=== PATIENT | female | born 1945 | race Caucasian/White ===

== ENCOUNTER → 2017-03-04 | Outpatient (CLI) | payer OTHER ==
[2017-03-04 17:42] LABS: BASO % 0.6 %; BASO ABS # 0.04 K/uL (0-0.2); COMPLETE YES; EOS % 2.5 %; IG% 0.1 %; LYMPH % 28.5 %; LYMPH ABS # 2.07 K/uL (1.2-3.4); MEAN CELL VOLUME 96.9 fL (80-100); MEAN CORPUSCULAR HEMOGLOBIN 32.4 pg (25-34); MEAN CORPUSCULAR HGB CONC 33.4 g/dl (32-36); MEAN PLATELET VOLUME 10.3 fL (7.4-10.4); MONO % 8.5 %; NEUT % 59.8 %; PLATELET COUNT 228 K/uL (130-400); RED BLOOD COUNT 4.54 M/uL (4.2-5.4); WHITE BLOOD COUNT 7.26 K/uL (4.8-10.8)
[2017-03-04 18:03] LABS: CALCIUM 9.1 mg/dl (8.5-10.1)
[2017-03-04 18:05] LABS: ALB/GLOB RATIO 1.1 (0.9-2); ALKALINE PHOSPHATASE 60 U/L (45-117); ALT/SGPT 23 U/L (12-78); AST/SGOT 19 U/L (15-37); BLOOD UREA NITROGEN 18 mg/dl (7-18); BUN/CREATININE RATIO 25.7 (10-20); CARBON DIOXIDE 30 mmol/L (21-32); CHLORIDE 105 mmol/L (98-107); GLUCOSE 135 mg/dl (70-99); POTASSIUM 3.8 mmol/L (3.5-5.1); SODIUM 142 mmol/L (136-145)
--- NOTE | 2017-03-14 06:07 | CODING QUERY MEDICAL NECESSITY ---
SUPPORTING DIAGNOSIS NEEDED Dr. Diamond, A supporting diagnosis is required for the test/procedure performed on this patient in order for us to be reimbursed by the patient's insurance. Please provide a supporting diagnosis for the following test/procedure listed below next to the test name along with your signature. *If there is no additional diagnosis for this patient that would support the following test/procedure please document that below next to the test/procedure. Test(s)/Procedure(s) that require a supporting diagnosis: * ([id number]) VITAMIN D ASSAY DIAGNOSIS: * ([id number]) B12 VITAMIN LEVEL DIAGNOSIS: DATE OF SERVICE: 03/04/17 Provider Signature: Date: Thank you Efrain Irwin [facility] Information Management Once completed, please kindly fax back to [phone] For questions please call [phone]
== END | disposition home or self-care (01) ==
LOC: C.LABBFT 12:32
PROVIDERS: ATTEND Internal Medicine
DX: J44.9 Chronic obstructive pulmonary disease, unspecified (principal); R53.83 Other fatigue

== ENCOUNTER → 2017-03-08 | Outpatient (CLI) | payer OTHER ==
--- NOTE | 2017-03-08 10:33 | DIAGNOSTIC IMAGING REPORT ---
CHEST 2 VIEWS ROUTINE CLINICAL HISTORY: J44.9 Chronic obstructive pulmonary disease COMPARISON STUDY: 01/31/2015 FINDINGS: Stable mild/moderate emphysematous change. Slight interstitial prominence considered chronic. No new or interval change. There are no focal infiltrative changes. Mild flattening of the diaphragms bilaterally. IMPRESSION: Stable emphysematous change. No acute process. Electronically signed by: Tino Green M.D. 03/08/2017 10:31 AM Dictated Date/Time: 03/08/2017 10:30 AM
== END | disposition home or self-care (01) ==
LOC: C.RAD1850 09:58
PROVIDERS: ATTEND Internal Medicine
DX: J44.9 Chronic obstructive pulmonary disease, unspecified (principal)

== ENCOUNTER 2019-03-12 21:10 | Inpatient (IN) ==
[2019-03-12] MEDS ORDERED: methylPREDNISolone 125 MG/2 ML VIAL IV STA (22:00)
[2019-03-12] MEDS ORDERED: ALBUT/IPRATROP 3MG/0.5MG NEB 3 ML VIAL NEB STA ×2 (22:00→23:51)
--- NOTE | 2019-03-12 22:05 | Emergency Department Note ---
Entered by Roberto Parmar acting as a scribe for Jayjay Gan DO History of Present Illness General Chief complaint: Shortness of Breath/Dyspnea Stated complaint: SOB Time Seen by Provider: 03/12/19 21:51 Source: patient History of Present Illness Provider complaint: Shortness of breath Onset (ago): hour(s) (Couple days ago) Location: chest Radiation: non-radiation Pain Consistency: + constant Relieved By: + none Exacerbated By: + none Associated symptoms: + cough The patient is a 73 year old female who presents to the Emergency Room with complaints of constant shortness of breath that started a couple of days ago when she developed a cold. The patient states that when the cold began she also developed a constant cough. She mentioned that over these past few days she has not been sleeping well, nor has she been drinking many fluids, which she thinks may be the cause of her symptoms. Prior to arrival the patient has been taking Advil every 8 hours, but her symptoms persist. The patient states that she came in tonight because a friend that was visiting did not like how her breathing sounded. The patient does not wear oxygen at baseline but does have a history of emphysema and COPD from smoking. The patient currently smokes about 7 cigarettes per day. Home Medications Home Medications Medication Instructions Recorded Confirmed Type acetaminophen [Tylenol] 325 mg PO QID PRN 03/12/19 03/12/19 History losartan 50 mg PO DAILY 03/12/19 03/12/19 History Allergies Allergy/AdvReac Type Severity Reaction Status Date / Time erythromycin base Allergy Intermediate HIVES, Verified 02/22/15 20:03 SWELLING Past Med/Surg History Medical History Kidney stones (Resolved) Abdominal pain (Acute) Constipation (Acute) Family History Other No pertinent family history in first degree relatives Social History Preferred Language: Irish Feels Safe at Home: Yes Smoking Status: Current every day smoker Review of Systems See HPI for pertinent positives & negatives. and A total of 10 systems reviewed and were otherwise negative Physical Exam Vital Signs Vital Signs - 24 hr 03/12/19 21:15 03/12/19 21:21 06/13/19 22:21 Temperature 36.8 C Temperature Source Oral Sepsis Recent Fever Within 48 Hours No Sepsis New/Unexplained Change in Mental Status No Sepsis Action Taken by Nursing No Action Required Pulse Rate 100 H Pulse Rate [Apical] Pulse Rate from SpO2 Sensor Pulse Rhythm Regular Pulse Rhythm [Apical] Pulse Strength Normal Pulse Strength [Apical] Respiratory Rate 26 H 20 Respiratory Effort / Characteristics Non-Labored Spontaneous Non-Labored Spontaneous Non-Labored Spontaneous Respiratory Depth Normal Normal Respiratory Pattern Regular Regular Blood Pressure 189/107 H Blood Pressure [Right Arm] Blood Pressure Mean 134 Blood Pressure Mean [Right Arm] Blood Pressure Position Sitting Blood Pressure Position [Right Arm] Pulse Oximetry 87 L 96 98 Oxygen Delivery Method Room Air Nasal Cannula Nasal Cannula Oxygen Flow Rate 2 2 03/12/19 22:23 03/12/19 23:00 03/13/19 00:00 Temperature Temperature Source Sepsis Recent Fever Within 48 Hours Sepsis New/Unexplained Change in Mental Status Sepsis Action Taken by Nursing Pulse Rate 93 H Pulse Rate [Apical] 89 Pulse Rate from SpO2 Sensor 93 H Pulse Rhythm Pulse Rhythm [Apical] Regular Pulse Strength Pulse Strength [Apical] Normal Respiratory Rate 20 24 Respiratory Effort / Characteristics Non-Labored Spontaneous Respiratory Depth Normal Respiratory Pattern Regular Blood Pressure 171/88 H Blood Pressure [Right Arm] 145/76 H Blood Pressure Mean 115 Blood Pressure Mean [Right Arm] 99 Blood Pressure Position Blood Pressure Position [Right Arm] Sitting Pulse Oximetry 97 97 97 Oxygen Delivery Method Nasal Cannula Nasal Cannula Oxygen Flow Rate 2 2 03/13/19 00:30 03/13/19 00:31 03/13/19 01:00 Temperature Temperature Source Sepsis Recent Fever Within 48 Hours Sepsis New/Unexplained Change in Mental Status Sepsis Action Taken by Nursing Pulse Rate 98 H 96 H 98 H Pulse Rate [Apical] 95 H Pulse Rate from SpO2 Sensor 99 H 93 H Pulse Rhythm Pulse Rhythm [Apical] Regular Pulse Strength Pulse Strength [Apical] Respiratory Rate 22 24 24 Respiratory Effort / Characteristics Respiratory Depth Normal Respiratory Pattern Regular Blood Pressure 179/101 H Blood Pressure [Right Arm] 185/93 H Blood Pressure Mean 127 Blood Pressure Mean [Right Arm] 123 Blood Pressure Position Blood Pressure Position [Right Arm] Pulse Oximetry 93 94 96 Oxygen Delivery Method Nasal Cannula Oxygen Flow Rate 2 GENERAL: Patient is awake alert in no acute distress patient is resting comfortably and showing no signs of anxiety EYES: The conjunctivae are clear. The pupils are round and reactive. EARS, NOSE, MOUTH AND THROAT: The nose is without any evidence of any deformity. Mucous membranes are moist tongue is midline NECK: The neck is nontender and supple. RESPIRATORY: Shallow respirations were noted. There are diminished breath sounds throughout with expiratory wheezing in both upper lung bianchi. Mild conversational dyspnea was appreciated. CARDIOVASCULAR: Tachycardic rate with regular rhythm was noted. No definite murmur was noted. GASTROINTESTINAL: The abdomen is soft. Bowel sounds are present in all quadrants. Abdomen is nontender MUSCULOSKELETAL/EXTREMITIES: There is no evidence of gross deformity full range of motion is noted in the hips and shoulders SKIN: There is no obvious evidence of any rash. There are no petechiae, pallor or cyanosis noted. NEUROLOGIC: Patient is awake alert and oriented x3 strength is symmetric patellar reflexes are 2+ bilaterally Course 2154: The patient was evaluated in room B06, and a complete history and physical examination were performed. 0022: I spoke to Dr. Garland [facility] Hospitalist about the patient's case and he is going to accept her for further evaluation. 0031: I updated the patient on results and the treatment plan. She is in agreement. Consultations Consultation #1: I spoke to Dr. Garland [facility] Hospitalist about the patient's case and he is going to accept her for further evaluation. Time: 00:22 Administered Medications Ioversol (Optiray 320 125ml) 125 ml IV ONCE PRN PRN Reason: Interaction Checking Stop: 03/16/19 23:37 Last Admin: 03/12/19 23:39 Dose: 90 ml Documented by: [id number] Discontinued Medications Albuterol (Duoneb) 3 ml NEB NOW STA Stop: 03/12/19 22:01 Last Admin: 03/12/19 22:17 Dose: 3 ml Documented by: [id number] Albuterol (Duoneb) 3 ml NEB NOW STA Stop: 03/12/19 23:52 Last Admin: 03/13/19 00:29 Dose: 3 ml Documented by: [id number] Sodium Chloride (Nss 1000ml) 500 mls @ 999 mls/hr IV .Q31M ONE Stop: 03/12/19 23:44 Last Infusion: 03/13/19 00:45 Dose: 0 mls/hr Documented by: [id number] Admin: 03/12/19 23:55 Dose: 999 mls/hr Documented by: [id number] Levofloxacin (Levaquin) 750 mg PO ONE ONE Stop: 03/13/19 00:14 Last Admin: 03/13/19 00:29 Dose: Not Given Documented by: [id number] Levofloxacin (Levaquin) Confirm Administered Dose 750 mg PO .STK-MED ONE Stop: 03/13/19 00:24 Last Admin: 03/13/19 00:28 Dose: 750 mg Documented by: [id number] Methylprednisolone (Solumedrol) 125 mg IV NOW STA Stop: 03/12/19 22:01 Last Admin: 03/12/19 22:34 Dose: 125 mg Documented by: [id number] Medical Decision Making Differential Diagnosis Differential diagnoses includes but is not limited to pneumonia, bronchitis, C OPD/Asthma exacerbation, pneumothorax, pulmonary embolism, congestive heart failure, acute coronary syndrome, amongst others. Medical Records Attestation: I reviewed the patient's medical records. Home Medications Current Medication List: was personally reviewed by me Laboratory Data Attestation: I reviewed the patient's lab results. Result diagrams: 03/12/19 22:21 03/12/19 22:21 Lab Results 03/12/19 03/12/19 03/12/19 Range/Units 22:08 22:21 22:21 WBC 11.08 H (4.8-10.8) K/uL RBC 4.93 (4.2-5.4) M/uL Hgb 16.1 H (12.0-16.0) g/dL Hct 46.0 (37-47) % MCV 93.3 (80-100) fL MCH 32.7 (25-34) pg MCHC 35.0 (32-36) g/dL RDW Std Deviation 45.7 (36.4-46.3) fL RDW Coeff of Petty 13.3 (11.5-14.5) % Plt Count 209 (130-400) K/uL MPV 9.1 (7.4-10.4) fL Immature Gran % (Auto) 0.3 % Neut % (Auto) 73.5 % Lymph % (Auto) 12.2 % [place] % (Auto) 12.7 % Eos % (Auto) 0.9 % Baso % (Auto) 0.4 % Immature Gran # (Auto) 0.03 H (0.00-0.02) K/uL Neut # (Auto) 8.15 H (1.4-6.5) K/uL Lymph # (Auto) 1.35 (1.2-3.4) K/uL [place] # (Auto) 1.41 H (0.11-0.59) K/uL Eos # (Auto) 0.10 (0-0.5) K/uL Baso # (Auto) 0.04 (0-0.2) K/uL PT 11.1 (9.0-12.0) Seconds INR 1.1 (0.9-1.1) APTT 28.2 (21.0-31.0) Seconds PTT Ratio 1.0 VBG pH (7.36-7.41) VBG pCO2 (38-50) mmHg VBG pO2 mmHg VBG HCO3 mmol/L VBG O2 Saturation % VBG Base Excess mEq/L Barometric Pressure mm/Hg Sodium (136-145) mmol/L Potassium (3.5-5.1) mmol/L Chloride (98-107) mmol/L Carbon Dioxide (21-32) mmol/L Anion Gap (3-11) BUN (7-18) mg/dl Creatinine (0.6-1.2) mg/dl Est Cr Clr Drug Dosing ml/min Est GFR ( Amer) Est GFR (Non-Af Amer) BUN/Creatinine Ratio (10-20) Glucose (70-99) mg/dl Calcium (8.5-10.1) mg/dl Magnesium (1.8-2.4) mg/dl Total Bilirubin (0.2-1) mg/dl AST (15-37) U/L ALT (12-78) U/L Alkaline Phosphatase (45-117) U/L Troponin I (0-0.045) ng/ml Total Protein (6.4-8.2) gm/dl Albumin (3.4-5.0) gm/dl Globulin (2.5-4.0) gm/dl Albumin/Globulin Ratio (0.9-2) Urine Color Yellow Urine Appearance Clear (Clear) Urine pH 5.5 (4.5-7.5) Ur Specific [place] 1.014 (1.000-1.030) Urine Protein Negative (Negative) Urine Glucose (UA) Negative (Negative) Urine Ketones Negative (Negative) Urine Blood Negative (Negative) Urine Nitrite Negative (Negative) Urine Bilirubin Negative (Negative) Urine Urobilinogen Negative (Negative) Ur Leukocyte Esterase Negative (Negative) 03/12/19 03/12/19 Range/Units 22:21 22:21 WBC (4.8-10.8) K/uL RBC (4.2-5.4) M/uL Hgb (12.0-16.0) g/dL Hct (37-47) % MCV (80-100) fL MCH (25-34) pg MCHC (32-36) g/dL RDW Std Deviation (36.4-46.3) fL RDW Coeff of Petty (11.5-14.5) % Plt Count (130-400) K/uL MPV (7.4-10.4) fL Immature Gran % (Auto) % Neut % (Auto) % Lymph % (Auto) % [place] % (Auto) % Eos % (Auto) % Baso % (Auto) % Immature Gran # (Auto) (0.00-0.02) K/uL Neut # (Auto) (1.4-6.5) K/uL Lymph # (Auto) (1.2-3.4) K/uL [place] # (Auto) (0.11-0.59) K/uL Eos # (Auto) (0-0.5) K/uL Baso # (Auto) (0-0.2) K/uL PT (9.0-12.0) Seconds INR (0.9-1.1) APTT (21.0-31.0) Seconds PTT Ratio VBG pH 7.37 (7.36-7.41) VBG pCO2 51 H (38-50) mmHg VBG pO2 40 mmHg VBG HCO3 29 mmol/L VBG O2 Saturation 74.8 % VBG Base Excess 2.4 mEq/L Barometric Pressure 726.3 mm/Hg Sodium 137 (136-145) mmol/L Potassium 4.0 (3.5-5.1) mmol/L Chloride 101 (98-107) mmol/L Carbon Dioxide 30 (21-32) mmol/L Anion Gap 6.0 (3-11) BUN 19 H (7-18) mg/dl Creatinine 0.70 (0.6-1.2) mg/dl Est Cr Clr Drug Dosing 52.9 ml/min Est GFR ( Amer) 99.6 Est GFR (Non-Af Amer) 86.0 BUN/Creatinine Ratio 27.0 H (10-20) Glucose 96 (70-99) mg/dl Calcium 9.6 (8.5-10.1) mg/dl Magnesium 2.2 (1.8-2.4) mg/dl Total Bilirubin 0.2 (0.2-1) mg/dl AST 20 (15-37) U/L ALT 24 (12-78) U/L Alkaline Phosphatase 78 (45-117) U/L Troponin I < 0.015 (0-0.045) ng/ml Total Protein 7.9 (6.4-8.2) gm/dl Albumin 3.9 (3.4-5.0) gm/dl Globulin 4.0 (2.5-4.0) gm/dl Albumin/Globulin Ratio 1.0 (0.9-2) Urine Color Urine Appearance (Clear) Urine pH (4.5-7.5) Ur Specific [place] (1.000-1.030) Urine Protein (Negative) Urine Glucose (UA) (Negative) Urine Ketones (Negative) Urine Blood (Negative) Urine Nitrite (Negative) Urine Bilirubin (Negative) Urine Urobilinogen (Negative) Ur Leukocyte Esterase (Negative) Imaging Data Radiologist's Impression: Radiology results as stated below per my review and the radiologist's interpretation: CTA CHEST: Comparison is made to CT chest on 06/09/2008. No pulmonary embolus identified. Atherosclerotic changes of the aorta. No aortic aneurysm or dissection. Bronchial wall thickening is concerning for bronchitis. Mucus impaction in the bronchi in the right middle lobe and right lower lobe. Reticulonodular densities in the right middle lobe and right lower lobe are concerning for infectious/inflammatory process. Emphysematous changes. Mild reflux of contrast into the hepatic veins suggests elevated right heart pressures. Prominence of the esophageal wall could represent esophagitis. Small hypodense nodule in the left thyroid lobe could be further evaluated with nonemergent dedicated ultrasound if clinically indicated. Nonspecific mildly prominent mediastinal and hilar lymph nodes. Radiologist: Daryl Hartman M.D. Study ready at 23:47 and initial results transmitted at 00:02 XR chest 1V portable CLINICAL HISTORY: 73 years-old Female presenting with Dyspnea. TECHNIQUE: Portable upright AP view of the chest was obtained. COMPARISON: Chest x-ray from 02/28/2018. FINDINGS: Atherosclerosis of the aortic arch. Cardiac silhouette normal in size. Lungs are hyperinflated. No focal opacity. No pleural effusion or pneumothorax. Osseous structures normal. Upper abdomen normal. IMPRESSION: 1. Findings suggest emphysema. No focal infiltrate to suggest pneumonia. Electronically signed by: Gabriel Armstrong M.D. 03/12/2019 10:49 PM ECG Data Attestation: I personally reviewed and interpreted this ECG as follows: Indication: SOB/dyspnea Rate (beats per minute): 98 Rhythm: normal sinus Findings: + Q waves (Anterior); no nonspecific-ST abn, no PAC and no PVC Comparison ECG Date: no prior available Blood Pressure Blood Pressure Findings: Elevated blood pressure Blood Pressure Disposition: further management by hospitalist MDM Narrative The patient is a 73-year-old female who presented to the emergency department for an evaluation of shortness of breath. The patient does have a history of tobacco use and appears to have COPD. The patient was treated with IV fluids as well as bronchodilator therapy. She was also given IV steroids. She was placed on supplemental oxygen for hypoxia. On subsequent reevaluation she was feeling much better. I discussed the patient's laboratory and radiographic studies with her. She continued to have hypoxia and significant shortness of breath with any exertion. For this reason I discussed her case with the on-call [facility] hospitalist. They have agreed to evaluate the patient in the emergency department for further management and disposition. A CT the chest was obtained given the lack of findings on chest x-ray. This does not appear to be consistent with a PE but does appear to be consistent with some infectious changes in the right middle and right lower lobes. The patient was started on Levaquin. Impression & Plan COPD (chronic obstructive pulmonary disease), Hypoxia, Bronchitis Discharge Plan Visit Data Chief Complaint: Shortness of Breath/Dyspnea Stated Complaint: SOB ED Provider: Jayjay Gan Discharge Problem: COPD (chronic obstructive pulmonary disease), Hypoxia, Bronchitis Patient Disposition: Being Evaluated by Hospitalist Forms Stand Alone Forms: My [facility] Prescriptions Prescriptions: No Action losartan 50 mg tablet 50 mg PO DAILY RF: 0 acetaminophen [Tylenol] 325 mg Capsule 325 mg PO QID PRN (Reason: Pain) RF: 0 Referrals Referrals: Salvador Diamond III, MD [Primary Care Provider] - Discharge Problem: COPD (chronic obstructive pulmonary disease) Qualifiers: COPD type: emphysema Emphysema type: unspecified Qualified Code(s): J43.9 - Emphysema, unspecified The scribe's documentation has been prepared under my direction and personally reviewed by me in its entirety. I confirm that the note above accurately reflects all work, treatment, procedures, and medical decision making performed by me.
[2019-03-12 22:28] LABS: Appearance Urine Clear (Clear); Bilirubin Urine Negative (Negative); Blood Urine Negative (Negative); Color Urine Yellow; Glucose Urine UA Negative (Negative); Ketones Urine Negative (Negative); Leukocyte Esterase Urine Negative (Negative); Nitrite Urine Negative (Negative); Protein Urine Negative (Negative); Specific Gravity Urine 1.014 (1.000-1.030); Urobilinogen Urine Negative (Negative); pH Urine 5.5 (4.5-7.5)
[2019-03-12 22:31] LABS: Base Excess VBG 2.4 mEq/L; Oxygen Saturation VBG 74.8 %; pH VBG 7.37 (7.36-7.41)
[2019-03-12 22:32] LABS: Basophils # (auto) 0.04 K/uL (0-0.2); Basophils % (auto) 0.4 %; Eosinophils % (auto) 0.9 %; Hemoglobin 16.1 g/dL (12.0-16.0); Immature Granulocytes # (auto) 0.03 K/uL (0.00-0.02); Immature Granulocytes % (auto) 0.3 %; Lymphocytes # (auto) 1.35 K/uL (1.2-3.4); Lymphocytes % (auto) 12.2 %; Mean Corpuscular Volume 93.3 fL (80-100); Mean Platelet Volume 9.1 fL (7.4-10.4); Monocytes # (auto) 1.41 K/uL (0.11-0.59); Monocytes % (auto) 12.7 %; Neutrophils # (auto) 8.15 K/uL (1.4-6.5); Neutrophils % (auto) 73.5 %; Platelet Count 209 K/uL (130-400); RDW Coefficient of Variation 13.3 % (11.5-14.5); RDW Standard Deviation 45.7 fL (36.4-46.3); Red Blood Count 4.93 M/uL (4.2-5.4); White Blood Count 11.08 K/uL (4.8-10.8)
[2019-03-12 22:43] LABS: INR 1.1 (0.9-1.1); Partial Thromboplastin Time 28.2 Seconds (21.0-31.0); Prothrombin Time 11.1 Seconds (9.0-12.0)
[2019-03-12 22:48] LABS: Alanine Aminotransferase 24 U/L (12-78); Albumin Level 3.9 gm/dl (3.4-5.0); Aspartate Aminotransferase 20 U/L (15-37); Blood Urea Nitrogen 19 mg/dl (7-18); Calcium 9.6 mg/dl (8.5-10.1); Carbon Dioxide 30 mmol/L (21-32); Chloride 101 mmol/L (98-107); Creatinine Clr Calc Pharmacy 52.9 ml/min; Est GFR (African American) 99.6; Glucose 96 mg/dl (70-99); Magnesium 2.2 mg/dl (1.8-2.4); Sodium 137 mmol/L (136-145)
--- NOTE | 2019-03-12 22:51 | XRay Report ---
XR chest 1V portable CLINICAL HISTORY: 73 years-old Female presenting with Dyspnea. TECHNIQUE: Portable upright AP view of the chest was obtained. COMPARISON: Chest x-ray from 02/28/2018. FINDINGS: Atherosclerosis of the aortic arch. Cardiac silhouette normal in size. Lungs are hyperinflated. No fo antonino opacity. No pleural effusion or pneumothorax. Osseous structures normal. Upper abdomen normal. IMPRESSION: 1. Findings suggest emphysema. No focal infiltrate to suggest pneumonia. Electronically signed by: Gabriel Armstrong M.D. 03/12/2019 10:49 PM
[2019-03-12 22:53] LABS: Alkaline Phosphatase 78 U/L (45-117); Bilirubin,Total 0.2 mg/dl (0.2-1); Total Protein 7.9 gm/dl (6.4-8.2); Troponin I < 0.015 ng/ml (0-0.045)
[2019-03-12] MEDS ORDERED: SODIUM CHLORIDE 0.9% 1000ML 500 ML IV ONE (23:14)
[2019-03-12] MEDS ORDERED: OPTIRAY 320 125ml IV PRN (23:38)
[2019-03-13] MEDS ORDERED: levoFLOXacin 750 MG TAB PO ONE (00:13)
[2019-03-13] MEDS ORDERED: levoFLOXacin 250 MG TABLET PO ONE (00:23)
[2019-03-13] MEDS ORDERED: ACETAMINOPHEN 325 MG TAB PO PRN (02:56)
[2019-03-13] MEDS ORDERED: VANCOMYCIN CONSULT ACTIVE PRN (02:56)
[2019-03-13] MEDS ORDERED: NON-FORMULARY MEDICATION (Acetaminophen [Tylenol] 650 MG) PO PRN (02:56)
[2019-03-13] MEDS ORDERED: ALUMINUM/MAGNESIUM SUSP 30 ML UDC PO PRN (02:56)
[2019-03-13] MEDS ORDERED: ONDANSETRON INJ 2 MG/ML 2 ML VIAL IV PRN (02:56)
[2019-03-13] MEDS ORDERED: PIPERACILL/TAZOBAC CONSULT ACTIVE PRN (02:56)
[2019-03-13] MEDS ORDERED: MAGNESIUM HYDROXIDE SUSP 30 ML UDC PO PRN (02:56)
[2019-03-13] MEDS ORDERED: POLYETHYLENE (MIRALAX) 17 GM PACK PO PRN (02:56)
[2019-03-13] MEDS ORDERED: PIPERACILLIN/TAZOBACTAM 3.375 GM in DEXTROSE 5% 100 ML IV SCH ×2 (03:30→08:00)
[2019-03-13] MEDS ORDERED: VANCOMYCIN HCL 1,000 MG in SODIUM CHLORIDE 0.9% 250 ML IV SCH (03:30)
--- NOTE | 2019-03-13 06:28 | History & Physical Report ---
Date of Service March 13, 2019 Assessment & Plan (1) COPD exacerbation: COPD exacerbation/right middle and right lower lobe pneumonia/mucous plugging involving right middle and lower lobes/hypoxia- Admit to monitored bed. Vancomycin IV, Zosyn IV per pharmacokinetic monitoring. Pulmicort Respules 0.5 mg inhaled twice daily. Duonebs every 4 hours while awake and every 2 hours when necessary. Guaifenesin extended release 600 mg p.o. twice daily. Sputum Gram stain and culture. Nasal cannula O2, titrate to keep pulse ox 92 to 94% The patient does not have a satisfactory response, she may need to be seen by pulmonology and have bronchoscopy done to clear mucus plugging. Present on Admission?: Yes (2) Pneumonia involving right lung: See above Present on Admission?: Yes (3) Mucus plugging of bronchi: See above Present on Admission?: Yes (4) Left thyroid nodule: Noted on CT. Order a TSH and free T4. Order thyroid ultrasound. Present on Admission?: Yes (5) Esophagitis: Esophageal wall thickening noted on CT, suggestive of esophagitis. With tobacco use history, may need to consider EGD to assess for possible esophageal cancer. Start pantoprazole 40 mg p.o. every morning Present on Admission?: Yes (6) Hypoxia: See above Present on Admission?: Yes (7) Hypertension: Hold losartan Present on Admission?: Yes (8) Tobacco use disorder: Tobacco cessation counseling. NicoDerm 14 mg patch Present on Admission?: Yes History of Present Illness Chief Complaint: The patient presents to the emergency department with complaint of worsening shortness of breath over the past few days. Her is presently in the hospital, and when a friend went to check on her, she was found to be short of breath and was brought to the emergency department for assessment. Primary Care Provider: Salvador Diamond MD The patient is a 73-year-old female with a past medical history including severe COPD, tobacco use disorder, kidney stones and hypertension, who was found by a friend in her home to be short of breath, sounding congested and having a productive cough. She was brought to the emergency department to have these symptoms assessed. Allergies Allergy/AdvReac Type Severity Reaction Status Date / Time erythromycin base Allergy Intermediate HIVES, Verified 02/22/15 20:03 SWELLING Home Medications Home Medications Medication Instructions Recorded Confirmed Type acetaminophen [Tylenol] 325 mg PO QID PRN 06/13/19 06/13/19 History losartan 50 mg PO DAILY 03/12/19 03/12/19 History Past Med/Surg History Medical History Kidney stones (Resolved) Abdominal pain (Acute) Constipation (Acute) Family History Other No pertinent family history in first degree relatives Social History Preferred Language: Guyanese Communication Ability: Effective Telex Operator Required: No Beliefs That Will Affect Care: None Current Living Situation: Spouse Other Information That Helps Us Care for You: No Feels Safe at Home: Yes Safety Concerns: Feels Safe At This Time Smoking Status: Current every day smoker Cigarettes Per Day: 6 Do You Dip or Chew Tobacco: No Tobacco Cessation Education Requested by Patient: No Hx Alcohol Use: No Hx Substance Use: No Review of Systems Review of Systems: The patient denies chest pain, lower extremity swelling, sore throat, fevers, chills, sweats, nausea, vomiting, diarrhea , constipation, abdominal pain, pelvic pain, blood in urine or stool, dysuria, urinary frequency or urgency, lightheadedness, dizziness, headache, memory loss, loss of consciousness, rash, abnormal bruising or bleeding, imbalance, focal weakness, numbness or tingling in arms or legs, generalized arthralgias or myalgias, back or neck pain, or night sweats. The review of systems is otherwise negative other than for that already noted above, and at least 10 systems have been reviewed. Physical Exam Physical Exam: The patient is awake, alert and oriented 3, normocephalic and atraumatic, lying in bed and in no acute distress. HEENT--PERRL, EOMI, mucous membranes and oropharynx dry. Neck--supple. No JVD. No bruits. Thyroid normal, trachea midline, no adenopathy. Heart--normal S1 and S2. No murmurs, rubs or gallops. Lungs--coarse breath sounds, right side greater than left, with wheezes scattered throughout. Abdomen--normal bowel sounds and soft. Nontender. Nondistended. Extremities--no cyanosis or clubbing. No edema. There are good distal pulses b/l. Dermatologic--normal skin turgor, normal color, no abnormal lymph nodes, no rash. Neurologic--cranial nerves II through XII grossly intact. Rheumatologic--normal range of motion. Psychiatric--normal affect. Results & Data Vital Signs (Past 12 Hours) Vital Signs Temp Pulse Pulse Resp BP BP BP 03/13/19 04:05 94 H 03/13/19 04:01 98.6 F 92 H 22 121/72 03/13/19 02:45 98.2 F 97 H 20 137/79 03/13/19 02:28 93 H 22 177/97 H 03/13/19 01:00 98 H 95 H 24 185/93 H 03/13/19 00:31 96 H 24 03/13/19 00:30 98 H 22 179/101 H 03/13/19 00:00 93 H 24 171/88 H 03/12/19 23:00 89 20 145/76 H 03/12/19 22:23 03/12/19 22:21 20 03/12/19 21:21 03/12/19 21:15 98.2 F 100 H 26 H 189/107 H Pulse Ox 03/13/19 04:05 03/13/19 04:01 96 03/13/19 02:45 96 03/13/19 02:28 98 03/13/19 01:00 96 03/13/19 00:31 94 03/13/19 00:30 93 03/13/19 00:00 97 03/12/19 23:00 97 03/12/19 22:23 97 03/12/19 22:21 98 03/12/19 21:21 96 03/12/19 21:15 87 L Laboratory Results Laboratory Results WBC 11.08 K/uL (4.8-10.8) H 03/12/19 22:21 RBC 4.93 M/uL (4.2-5.4) 03/12/19 22:21 Hgb 16.1 g/dL (12.0-16.0) H 03/12/19 22:21 Hct 46.0 % (37-47) 03/12/19 22:21 MCV 93.3 fL (80-100) 03/12/19 22:21 MCH 32.7 pg (25-34) 03/12/19 22:21 MCHC 35.0 g/dL (32-36) 03/12/19 22:21 RDW Std Deviation 45.7 fL (36.4-46.3) 03/12/19 22:21 RDW Coeff of Petty 13.3 % (11.5-14.5) 03/12/19 22:21 Plt Count 209 K/uL (130-400) 03/12/19 22:21 MPV 9.1 fL (7.4-10.4) 03/12/19 22:21 Immature Gran % (Auto) 0.3 % 03/12/19 22:21 Neut % (Auto) 73.5 % 03/12/19 22:21 Lymph % (Auto) 12.2 % 03/12/19 22:21 Crenshaw % (Auto) 12.7 % 03/12/19 22:21 Eos % (Auto) 0.9 % 03/12/19 22:21 Baso % (Auto) 0.4 % 03/12/19 22:21 Immature Gran # (Auto) 0.03 K/uL (0.00-0.02) H 03/12/19 22:21 Neut # (Auto) 8.15 K/uL (1.4-6.5) H 03/12/19 22:21 Lymph # (Auto) 1.35 K/uL (1.2-3.4) 03/12/19 22:21 Crenshaw # (Auto) 1.41 K/uL (0.11-0.59) H 03/12/19 22:21 Eos # (Auto) 0.10 K/uL (0-0.5) 03/12/19 22:21 Baso # (Auto) 0.04 K/uL (0-0.2) 03/12/19 22:21 PT 11.1 Seconds (9.0-12.0) 03/12/19 22:21 INR 1.1 (0.9-1.1) 03/12/19 22: APTT 28.2 Seconds (21.0-31.0) 03/12/19: PTT Ratio 1.0 03/12/19 22:21 VBG pH 7.37 (7.36-7.41) 03/12/19 22: VBG pCO2 51 mmHg (38-50) H 03/12/19 22:21 VBG pO2 40 mmHg 03/12/19 22:21 VBG HCO3 29 mmol/L 03/12/19 22:21 VBG O2 Saturation 74.8 % 03/12/19 22:21 VBG Base Excess 2.4 mEq/L 03/12/19 22:21 Barometric Pressure 726.3 mm/Hg 03/12/19 22:21 Sodium 137 mmol/L (136-145) 03/12/19 22:21 Potassium 4.0 mmol/L (3.5-5.1) 03/12/19 22:21 Chloride 101 mmol/L (98-107) 03/12/19 22:21 Carbon Dioxide 30 mmol/L (21-32) 03/12/19 22:21 Anion Gap 6.0 (3-11) 03/12/19 22:21 BUN 19 mg/dl (7-18) H 03/12/19 22:21 Creatinine 0.70 mg/dl (0.6-1.2) 03/12/19 22:21 Est Cr Clr Drug Dosing 52.9 ml/min 03/12/19 22:21 Est GFR ( Amer) 99.6 03/12/19 22:21 Est GFR (Non-Af Amer) 86.0 03/12/19 22:21 BUN/Creatinine Ratio 27.0 (10-20) H 03/12/19 22:21 Glucose 96 mg/dl (70-99) 03/12/19 22:21 Calcium 9.6 mg/dl (8.5-10.1) 03/12/19 22:21 Magnesium 2.2 mg/dl (1.8-2.4) 03/12/19 22:21 Total Bilirubin 0.2 mg/dl (0.2-1) 03/12/19 22:21 AST 20 U/L (15-37) 03/12/19 22:21 ALT 24 U/L (12-78) 03/12/19 22:21 Alkaline Phosphatase 78 U/L (45-117) 03/12/19 22:21 Troponin I < 0.015 ng/ml (0-0.045) 03/12/19 22:21 Total Protein 7.9 gm/dl (6.4-8.2) 03/12/19 22:21 Albumin 3.9 gm/dl (3.4-5.0) 03/12/19 22:21 Globulin 4.0 gm/dl (2.5-4.0) 03/12/19 22:21 Albumin/Globulin Ratio 1.0 (0.9-2) 03/12/19 22:21 Urine Color Yellow 03/12/19 22:08 Urine Appearance Clear (Clear) 03/12/19 22:08 Urine pH 5.5 (4.5-7.5) 03/12/19 22:08 Ur Specific [place] 1.014 (1.000-1.030) 03/12/19 22:08 Urine Protein Negative (Negative) 03/12/19 22:08 Urine Glucose (UA) Negative (Negative) 03/12/19 22:08 Urine Ketones Negative (Negative) 03/12/19 22:08 Urine Blood Negative (Negative) 03/12/19 22:08 Urine Nitrite Negative (Negative) 03/12/19 22:08 Urine Bilirubin Negative (Negative) 03/12/19 22:08 Urine Urobilinogen Negative (Negative) 03/12/19 22:08 Ur Leukocyte Esterase Negative (Negative) 03/12/19 22:08 Hepatitis C Ab Screen Neg (Neg) 03/12/19 22:23 Diagnostic Findings [place], [place] [phone] XRay Report Patient: Kary STINSON Date: 03/12/19 MR#: [id number]: 4 [facility] Acct ID:[id number]: Date: [address] [place] [address] Zip: [place] [address] Age: 73Location: ED Sex: F Room/Bed: Att Phy: Diagnosis: SOB Ava Phy: Salvador Diamond, III, MDService Date: 03/12/19 Fam Phy: Interpreting Phy: Gabriel Armstrong MD Admit Phy: Ordering Phy: Jayjay Gan DO cc: ~ XR chest 1V portable CLINICAL HISTORY: 73 years-old Female presenting with Dyspnea. TECHNIQUE: Portable upright AP view of the chest was obtained. COMPARISON: Chest x-ray from 02/28/2018. FINDINGS: Atherosclerosis of the aortic arch. Cardiac silhouette normal in size. Lungs are hyperinflated. No focal opacity. No pleural effusion or pneumothorax. Osseous structures normal. Upper abdomen normal. IMPRESSION: 1. Findings suggest emphysema. No focal infiltrate to suggest pneumonia. Electronically signed by: Gabriel Armstrong M.D. 03/12/2019 10:49 PM Dictated: 03/12/192248 Transcribed: 03/12/192248 year still here Code Status & VTE Plan Code Status Full code VTE Prophylaxis Plan VTE Prophylaxis will be ordered: Yes PG Care Time/CCT Total # of Minutes Spent Total Time Spent with Patient: Total time spent is greater than 50% in coordination of care (as documented) at patient's floor/unit and/or counseling patient:
--- NOTE | 2019-03-13 06:57 | CT Scan Report ---
CT angio chest PE protocol CT DOSE: 250.54 mGy.cm HISTORY: 73 years-old Female with PE. Acute cough with shortness of breath TECHNIQUE: Multiple CTA images of the chest were obtained after the intravenous administration of 90 ml Optiray 320. Coronal and sagittal MIPS were obtained from the axial data set and were submitted f or review. All measurements were obtained according to NASCET criteria. A dose lowering technique wa s utilized adhering to the principles of ALARA. COMPARISON: Chest CT 06/09/2008 FINDINGS: CTA: Heart is normal in size without pericardial effusion. Coronary arterial calcifications are noted. No thoracic aortic aneurysm or dissection. Severe calcified plaque of the thoracic aorta with patency of the imaged great vessels. Reflux of contrast into the IVC and hepatic veins. Pulmonary arterial tree is opacified to the level of the distal segmental branches and demonstrates no focal filling defects to suggest pulmonary thromboembolic disease. CT CHEST: Subcentimeter hypodense left thyroid nodule. Prominent right hilar lymph nodes are seen measuring up to 7 mm, likely benign. No adenopathy by CT size criteria. No pneumothorax or pleural effusion. Biapi antonino pleural-parenchymal scarring with mild to moderate upper lung zone predominant centrilobular emph ysema. Moderate bilateral bronchial wall thickening with multifocal mucus plugging. Bibasilar predomi nant tree-in-bud nodules are seen within multiple segments and a multilobar distribution, most pronou nced within the right middle lobe. No lobar airspace consolidation. There is wall thickening noted throughout the entirety of the esophagus, nonspecific. Soft tissues ap pear to be unremarkable. The bones appear to be intact. Degenerative changes of the shoulders and spi ne. IMPRESSION: 1. No acute aortic pathology or evidence of pulmonary thromboembolic disease. 2. Emphysema with bronchitis. Multifocal bilateral mucus plugging is noted in addition to multisegmen mejia multilobar distribution of bronchiolitis, most pronounced within the right lung base. 3. Mildly prominent right hilar lymph nodes, likely reactive. 4. Mild diffuse esophageal wall thickening. Correlate clinically to exclude esophagitis. The above report was generated using voice recognition software. It may contain grammatical, syntax o r spelling errors. Electronically signed by: Maurice Palafox M.D. 03/13/2019 6:56 AM
[2019-03-13] MEDS: PANTOprazole 40 MG TAB PO SCH (08:10)
--- NOTE | 2019-03-13 08:10 | Pharmacy Report ---
Pharmacy Abx Initial Consult - Date of Service March 13, 2019 - Pharmacy Dosing Scope Date of Consult: 03/13/19 Consultation requested by: Dr. Garland Pharmacy is consulted to initiate Vanco + Zosyn IV dosing therapy, order appropriate labs and adjust drug dose/frequency. - Subjective The patient is a 73 year old F admitted on 03/13/19 01:48. - Objective Height: 5 ft 4 in Weight: 46.8 kg Vital Signs (Past 12hrs): Vital Signs Temp Pulse Pulse Resp BP BP BP 03/13/19 04:05 94 H 03/13/19 04:01 37 C 92 H 22 121/72 03/13/19 02:45 36.8 C 97 H 20 137/79 03/13/19 02:28 93 H 22 177/97 H 03/13/19 01:00 98 H 95 H 24 185/93 H 03/13/19 00:31 96 H 24 03/13/19 00:30 98 H 22 179/101 H 03/13/19 00:00 93 H 24 171/88 H 03/12/19 23:00 89 20 145/76 H 03/12/19 22:23 03/12/19 22:21 20 03/12/19 21:21 03/12/19 21:15 36.8 C 100 H 26 H 189/107 H Pulse Ox 03/13/19 04:05 03/13/19 04:01 96 03/13/19 02:45 96 03/13/19 02:28 98 03/13/19 01:00 96 03/13/19 00:31 94 03/13/19 00:30 93 03/13/19 00:00 97 03/12/19 23:00 97 03/12/19 22:23 97 03/12/19 22:21 98 03/12/19 21:21 96 03/12/19 21:15 87 L Lab Results (24hrs): Laboratory Tests (24 Hours) 03/12/19 03/12/19 22:21 22:21 WBC 11.08 H Neut # (Auto) 8.15 H Creatinine 0.70 Est Cr Clr Drug Dosing 52.9 - Risk Factors for Resistance * None - Assessment & Plan Assessment 73 year old F ordered Vanco/Zosyn for COPD Exacerbation CXR & CT negative for PNA Pt with no risk factors for MDRO - may consider deescalating antibiotics to traditional CAP tx (ceftriaxone/azithromycin vs levofloxacin) Plan Vancomycin IV * Estimated PK Parameters: Vd 0.7 L/kg, Shola 0.048 hr-1, t1/2 14.4 hr * Loading dose: 1,000 mg (21 mg/kg) * Maintenance dose: 750 mg IV (15 mg/kg) every 14 hours * Goal trough level for pulmonary : 15 to 20 mcg/mL * Trough level ordered for 03/15/19 @ 1130 (prior to 4th maintenance dose) Piperacillin/tazobactam * 3.375 g bolus administered over 30 minutes, then 3.375 g IV extended infusion every 8 hours for CrCl greater than 20 mL/min Pharmacy will continue to follow and will adjust dose/frequency as necessary. Thank you.
[2019-03-13] MEDS: guaiFENesin 600 MG TABCR PO SCH ×2 (08:11→20:48)
[2019-03-13] MEDS: LOSARTAN POTASSIUM 50 MG TAB PO SCH (08:11)
[2019-03-13] MEDS: HEPARIN SOD 5,000 UNIT/0.5 ML VIAL SQ SCH ×2 (08:17→20:49)
[2019-03-13] MEDS: NICOTINE 14 MG/24 HR PATCH TD SCH (08:18)
--- NOTE | 2019-03-13 11:05 | Ultrasound Report ---
US thyroid CLINICAL HISTORY: 73 years-old Female with Left thyroid lobe nodule seen on CT. Left thyroid nodule COMPARISON: CTA of the chest 03/12/2019 TECHNIQUE: Multiple real time sonographic images of the thyroid were obtained accessing regalado scale ap pearance and color doppler flow. FINDINGS: MEASUREMENTS: Right lobe: 4.2 x 1.2 x 1.2 cm Left lobe: 4.4 x 1.0 x 1.2 cm Isthmus: 0.3 cm PARENCHYMA: The thyroid parenchymal echotexture is homogeneous. NODULES: The previously questioned subcentimeter hypodense left thyroid nodule may correlate with a 4 mm hypoechoic focus of the mid left thyroid. No suspicious nodules identified. No right thyroid nodu le. IMPRESSION: 1. No suspicious thyroid nodules identified. 2. Equivocal 4 mm hypoechoic solid nodule of the mid left thyroid. The above report was generated using voice recognition software. It may contain grammatical, syntax o r spelling errors. Electronically signed by: Maurice Palafox M.D. 03/13/2019 11:04 AM
[2019-03-13] MEDS: ALBUT/IPRATROP 3MG/0.5MG NEB 3 ML VIAL NEB SCH ×4 (11:10→19:32)
[2019-03-13] MEDS: BUDESONIDE 0.5 MG/2 ML VIAL (PULMICORT) NEB SCH ×2 (11:10→19:32)
[2019-03-13] MEDS: cefTRIAXone SODIUM 1,000 MG in DEXTROSE 5% 50 ML IV SCH (12:11)
[2019-03-13] MEDS: predniSONE 20 MG TAB PO SCH (12:11)
--- NOTE | 2019-03-13 13:55 | Family Medicine Progress Note ---
Date of Service March 13, 2019 Assessment & Plan (1) COPD exacerbation: 73 y/o F with PMH HTN, Tobacco Abuse, COPD that is not O2 dependent presents with COPD exacerbation and PNA found on imaging. COPD exacerbation/R middle and RLL PNA -downgrade off tele today -D/C Vanc/Zosyn. Start IV Rocephin. Azithromycin not started given allergy. -Pulmicort Respules 0.5 mg inhaled BID -Duonebs q4h while awake and q2h prn -Guaifenesin extended release 600 mg p.o. BID -PO Prednisone 40 mg -Sputum Gram stain and culture pending -Nasal cannula O2, titrate to keep pulse ox 92 to 94%. On RA presently. Will likely go home on O2. Normally -consider pulm consult for possible bronch to clear mucus plugging if no improvement -PT/OT Left thyroid nodule -CT: Subcentimeter hypodense left thyroid nodule -TSH WNL -Thyroid ultrasound: No suspicious thyroid nodules identified Esophagitis -CT: Mild diffuse esophageal wall thickening, suggestive of esophagitis -With tobacco use history, can consider EGD to assess for possible esophageal cancer on d/c -Pantoprazole 40 mg p.o. every morning Hypertension -Cont Losartan Tobacco use disorder -NicoDerm 14 mg patch FEN/GI: HH Diet DVT Prophylaxis: Heparin SQ Full Code Dispo: Med Surg Supervising Physician Co-Signing Physician Notes I personally examined the patient and verified all tran points of history and exam, discussed case, and agree with decision making with Dr Garcia. Feeling better. Breathing better. Vitals noted, in general she is awake alert pleasant no distress. HEENT normocephalic atraumatic mucous membranes moist. Breathing is markedly diminished throughout with a degree of scattered expiratory rhonchi/wheeze. Good effort no accessory muscle use. Skin shows no rashes no pallor or icterus Right upper lobe pneumonia/COPD exacerbation/acute on chronic respiratory failureshe does not carry nosocomial risks, change antibiotics to ceftriaxone. Considered azithromycin as well, but given that it is all 1 main area of consolidation, it is not likely to be atypicals, and given her questionable reaction to erythromycin (which she was unable to reliably recall other than breaking out in hives from something) it seems that the potential risk of provoking an allergic reaction with azithromycin is not worth the potential pulmonary anti-inflammatory benefit. For her COPD continue nebulizers, start prednisone. In review of her pulmonary function test from 2 years ago, her FEV1 was 0.91 with an FVC of approximately 1.55 and an FEV1 to FVC ratio 55%, and she has continued to smoke meaning that these are likely worse now, so I suspect she chronically has a degree of respiratory failure made worse by the current situation. I discussed this with her particularly in the context that there is a high likelihood she will have to go home with oxygen. DVT prophylaxisheparin subcu Stable for MedSurg, otherwise as above. Subjective 73 y/o F found in bed this AM in NAD. Reports breathing improved today compared to yesterday. No increased WOB, but still ongoing cough dry. Tolerating PO intake. No issues voiding. No other acute concerns or complaints. Review of Systems Review of Systems: All systems reviewed & are unremarkable except as noted in HPI & below Physical Exam Constitutional: WD/WN, vitals as above Eyes: PERRL, conjunctivae normal, anicteric sclerae ENMT: external ear and nose normal, oropharynx normal Respiratory: normal respiratory effort; no respiratory distress, no labored breathing and does not use accessory muscles scattered expiratory wheezing Diminished breath sounds Cardiovascular: RRR, no murmur, no edema Gastrointestinal (Abdomen): normal bowel sounds, soft, nontender, no hepatosplenomegaly Skin: no rashes, warm and dry Psychiatric: A+Ox3, euthymic affect Results & Data Vital Signs (Past 12 Hours) Vital Signs Temp Pulse Pulse Resp BP BP BP 03/13/19 11:40 36.7 C 82 18 138/78 03/13/19 07:46 37 C 85 18 145/65 H 03/13/19 04:05 94 H 03/13/19 04:01 37 C 92 H 22 121/72 03/13/19 02:45 36.8 C 97 H 20 137/79 03/13/19 02:28 93 H 22 177/97 H Pulse Ox 03/13/19 11:40 91 03/13/19 07:46 94 03/13/19 04:05 03/13/19 04:01 96 03/13/19 02:45 96 03/13/19 02:28 98 Laboratory Results Laboratory Results - last 24 hr 03/12/19 03/12/19 03/12/19 22:08 22:21 22:21 WBC 11.08 H RBC 4.93 Hgb 16.1 H Hct 46.0 MCV 93.3 MCH 32.7 MCHC 35.0 RDW Std Deviation 45.7 RDW Coeff of Petty 13.3 Plt Count 209 MPV 9.1 Immature Gran % (Auto) 0.3 Neut % (Auto) 73.5 Lymph % (Auto) 12.2 [place] % (Auto) 12.7 Eos % (Auto) 0.9 Baso % (Auto) 0.4 Immature Gran # (Auto) 0.03 H Neut # (Auto) 8.15 H Lymph # (Auto) 1.35 [place] # (Auto) 1.41 H Eos # (Auto) 0.10 Baso # (Auto) 0.04 PT 11.1 INR 1.1 APTT 28.2 PTT Ratio 1.0 VBG pH VBG pCO2 VBG pO2 VBG HCO3 VBG O2 Saturation VBG Base Excess Barometric Pressure Sodium Potassium Chloride Carbon Dioxide Anion Gap BUN Creatinine Est Cr Clr Drug Dosing Est GFR ( Amer) Est GFR (Non-Af Amer) BUN/Creatinine Ratio Glucose Calcium Magnesium Total Bilirubin AST ALT Alkaline Phosphatase Troponin I Total Protein Albumin Globulin Albumin/Globulin Ratio TSH Urine Color Yellow Urine Appearance Clear Urine pH 5.5 Ur Specific [place] 1.014 Urine Protein Negative Urine Glucose (UA) Negative Urine Ketones Negative Urine Blood Negative Urine Nitrite Negative Urine Bilirubin Negative Urine Urobilinogen Negative Ur Leukocyte Esterase Negative Hepatitis C Ab Screen 03/12/19 03/12/19 03/12/19 22:21 22:21 22:23 WBC RBC Hgb Hct MCV MCH MCHC RDW Std Deviation RDW Coeff of Petty Plt Count MPV Immature Gran % (Auto) Neut % (Auto) Lymph % (Auto) [place] % (Auto) Eos % (Auto) Baso % (Auto) Immature Gran # (Auto) Neut # (Auto) Lymph # (Auto) [place] # (Auto) Eos # (Auto) Baso # (Auto) PT INR APTT PTT Ratio VBG pH 7.37 VBG pCO2 51 H VBG pO2 40 VBG HCO3 29 VBG O2 Saturation 74.8 VBG Base Excess 2.4 Barometric Pressure 726.3 Sodium 137 Potassium 4.0 Chloride 101 Carbon Dioxide 30 Anion Gap 6.0 BUN 19 H Creatinine 0.70 Est Cr Clr Drug Dosing 52.9 Est GFR ( Amer) 99.6 Est GFR (Non-Af Amer) 86.0 BUN/Creatinine Ratio 27.0 H Glucose 96 Calcium 9.6 Magnesium 2.2 Total Bilirubin 0.2 AST 20 ALT 24 Alkaline Phosphatase 78 Troponin I < 0.015 Total Protein 7.9 Albumin 3.9 Globulin 4.0 Albumin/Globulin Ratio 1.0 TSH Urine Color Urine Appearance Urine pH Ur Specific [place] Urine Protein Urine Glucose (UA) Urine Ketones Urine Blood Urine Nitrite Urine Bilirubin Urine Urobilinogen Ur Leukocyte Esterase Hepatitis C Ab Screen Neg 03/13/19 06:37 WBC RBC Hgb Hct MCV MCH MCHC RDW Std Deviation RDW Coeff of Petty Plt Count MPV Immature Gran % (Auto) Neut % (Auto) Lymph % (Auto) [place] % (Auto) Eos % (Auto) Baso % (Auto) Immature Gran # (Auto) Neut # (Auto) Lymph # (Auto) [place] # (Auto) Eos # (Auto) Baso # (Auto) PT INR APTT PTT Ratio VBG pH VBG pCO2 VBG pO2 VBG HCO3 VBG O2 Saturation VBG Base Excess Barometric Pressure Sodium Potassium Chloride Carbon Dioxide Anion Gap BUN Creatinine Est Cr Clr Drug Dosing Est GFR ( Amer) Est GFR (Non-Af Amer) BUN/Creatinine Ratio Glucose Calcium Magnesium Total Bilirubin AST ALT Alkaline Phosphatase Troponin I Total Protein Albumin Globulin Albumin/Globulin Ratio TSH 0.859 Urine Color Urine Appearance Urine pH Ur Specific [place] Urine Protein Urine Glucose (UA) Urine Ketones Urine Blood Urine Nitrite Urine Bilirubin Urine Urobilinogen Ur Leukocyte Esterase Hepatitis C Ab Screen Medications Administered Current Inpatient Medications Acetaminophen (Tylenol) 650 mg PO Q4H PRN PRN Reason: Pain or Fever Stop: 04/12/19 02:55 Al Hydrox/Mg Hydrox/Simethicone (Maalox) 15 ml PO Q4H PRN PRN Reason: Dyspepsia Stop: 04/12/19 02:55 Albuterol (Duoneb) 3 ml NEB QIDR PAULINO Stop: 04/12/19 07:59 Last Admin: 03/13/19 14:14 Dose: 3 ml Documented by: Budesonide (Pulmicort Respules) 0.5 mg NEB BIDR PAULINO Stop: 04/12/19 07:59 Last Admin: 03/13/19 11:10 Dose: 0.5 mg Documented by: Guaifenesin (Mucinex) 600 mg PO Q12 [facility] Stop: 04/12/19 08:59 Last Admin: 03/13/19 08:11 Dose: 600 mg Documented by: Heparin Sodium (Porcine) (Heparin Sodium (Porcine)) 5,000 units SQ Q12 PAULINO Stop: 04/12/19 08:59 Last Admin: 03/13/19 08:17 Dose: 5,000 units Documented by: Ceftriaxone Sodium 1,000 mg/ (Dextrose) 50 mls @ 100 mls/hr IV Q24H [facility]; Protocol Stop: 03/20/19 11:59 Last Infusion: 03/13/19 12:45 Dose: Infused Documented by: Ioversol (Optiray 320 125ml) 125 ml IV ONCE PRN PRN Reason: Interaction Checking Stop: 03/16/19 23:37 Last Admin: 03/12/19 23:39 Dose: 90 ml Documented by: Losartan Potassium (Cozaar) 50 mg PO DAILY [facility] Stop: 04/12/19 08:59 Last Admin: 03/13/19 08:11 Dose: 50 mg Documented by: Magnesium Hydroxide (Milk Of Magnesia) 30 ml PO Q12H PRN PRN Reason: Constipation Stop: 04/12/19 02:55 Miscellaneous (Remove Nicoderm Patch) 1 ea N/A HS [facility] Stop: 04/12/19 20:59 Nicotine (Nicoderm Cq) 14 mg TD QAM [facility] Stop: 04/12/19 08:59 Last Admin: 03/13/19 08:18 Dose: Not Given Documented by: Ondansetron HCl (Zofran) 4 mg IV Q6H PRN PRN Reason: Nausea Stop: 04/12/19 02:55 Pantoprazole Sodium (Protonix) 40 mg PO QAM [facility] Stop: 04/12/19 08:59 Last Admin: 03/13/19 08:10 Dose: 40 mg Documented by: Polyethylene Glycol (Miralax Powder Packet) 17 gm PO DAILY PRN PRN Reason: Constipation Stop: 04/12/19 02:55 Prednisone (Prednisone) 40 mg PO DAILY [facility] Stop: 04/12/19 10:29 Last Admin: 03/13/19 12:11 Dose: 40 mg Documented by: PG Care Time/CCT Total # of Minutes Spent Total Time Spent with Patient: Total time spent is greater than 50% in coordination of care (as documented) at patient's floor/unit and/or counseling patient: Resident Activity Tracking Resident Involvement: Resident Care Provided Care Provided: Adult Hospital Medicine
--- NOTE | 2019-03-13 14:41 | Family Medicine Progress Note ---
Date of Service March 13, 2019 Supervising Physician Co-Signing Physician Notes Please see separate documentation from the same date for actual clinical information. The EMR was changed to allow for in-EMR coding entry, and I may have accidentally signed Dr Garcia's note without entering billing. If this is duplicate billing, please disregard. This note was generated simply to allow entry of the proper codes, but the separate note/same date contains the actual clinical information. This should be a one-time issue, and I apologize for any confusion. Results & Data Vital Signs (Past 12 Hours) Vital Signs Temp Pulse Pulse Resp BP BP Pulse Ox 03/13/19 14:16 64 16 96 03/13/19 11:40 36.7 C 82 18 138/78 91 03/13/19 07:46 37 C 85 18 145/65 H 94 03/13/19 04:05 94 H 03/13/19 04:01 37 C 92 H 22 121/72 96 03/13/19 02:45 36.8 C 97 H 20 137/79 96 PG Care Time/CCT Total # of Minutes Spent Total Time Spent with Patient: Total time spent is greater than 50% in coordination of care (as documented) at patient's floor/unit and/or counseling patient:
[2019-03-13] MEDS ORDERED: VANCOMYCIN HCL 750 MG in SODIUM CHLORIDE 0.9% 250 ML IV SCH (18:00)
[2019-03-14] MEDS: BUDESONIDE 0.5 MG/2 ML VIAL (PULMICORT) NEB SCH (07:20)
[2019-03-14] MEDS: ALBUT/IPRATROP 3MG/0.5MG NEB 3 ML VIAL NEB SCH ×2 (07:20→11:09)
[2019-03-14 08:35] LABS: Basophils # (auto) 0.02 K/uL (0-0.2); Basophils % (auto) 0.1 %; Eosinophils # (auto) 0.03 K/uL (0-0.5); Eosinophils % (auto) 0.2 %; Hematocrit (blood only) 43.9 % (37-47); Hemoglobin 15.1 g/dL (12.0-16.0); Immature Granulocytes # (auto) 0.03 K/uL (0.00-0.02); Immature Granulocytes % (auto) 0.2 %; Lymphocytes # (auto) 2.27 K/uL (1.2-3.4); Lymphocytes % (auto) 15.5 %; Mean Corpuscular Hgb Conc 34.4 g/dL (32-36); Mean Corpuscular Volume 94.6 fL (80-100); Monocytes % (auto) 9.6 %; Neutrophils # (auto) 10.89 K/uL (1.4-6.5); Neutrophils % (auto) 74.4 %; Platelet Count 227 K/uL (130-400); RDW Coefficient of Variation 13.6 % (11.5-14.5); RDW Standard Deviation 47.1 fL (36.4-46.3); Red Blood Count 4.64 M/uL (4.2-5.4); White Blood Count 14.64 K/uL (4.8-10.8)
[2019-03-14 08:55] LABS: BUN Creatinine Ratio 19.4 (10-20); Calcium 9.5 mg/dl (8.5-10.1); Creatinine Clr Calc Pharmacy 49.1 ml/min; Est GFR (African American) 90.2; Est GFR (Non-African American) 77.8; Potassium 3.6 mmol/L (3.5-5.1)
[2019-03-14] MEDS: LOSARTAN POTASSIUM 50 MG TAB PO SCH (09:28)
[2019-03-14] MEDS: guaiFENesin 600 MG TABCR PO SCH (09:28)
[2019-03-14] MEDS: PANTOprazole 40 MG TAB PO SCH (09:29)
[2019-03-14] MEDS: predniSONE 20 MG TAB PO SCH (09:29)
[2019-03-14] MEDS: HEPARIN SOD 5,000 UNIT/0.5 ML VIAL SQ SCH ×2 (09:39→09:47)
[2019-03-14] MEDS: NICOTINE 14 MG/24 HR PATCH TD SCH (09:41)
[2019-03-14] MEDS: cefTRIAXone SODIUM 1,000 MG in DEXTROSE 5% 50 ML IV SCH (12:09)
--- NOTE | 2019-03-14 12:56 | Discharge Summary ---
Date of Service March 14, 2019 Admission HPI Per Admitting Provider The patient is a 73-year-old female with a past medical history including severe COPD, tobacco use disorder, kidney stones and hypertension, who was found by a friend in her home to be short of breath, sounding congested and having a productive cough. She was brought to the emergency department to have these symptoms assessed. Principal Diagnosis copd exacerbation/pna Discharge Exam Constitutional WD/WN, vitals as above Eyes PERRL, conjunctivae normal, anicteric sclerae ENMT external ear and nose normal, oropharynx normal Respiratory normal respiratory effort; no respiratory distress, no labored breathing and does not use accessory muscles scattered expiratory wheezing Cardiovascular RRR, no murmur, no edema Gastrointestinal (Abdomen) normal bowel sounds, soft, nontender, no hepatosplenomegaly Skin no rashes, warm and dry Psychiatric A+Ox3, euthymic affect Discharge Data Allergies Allergy/AdvReac Type Severity Reaction Status Date / Time erythromycin base Allergy Intermediate HIVES, Verified 02/22/15 20:03 SWELLING Consultations 03/13/19 00:19 ED Decision to Admit Stat 03/13/19 02:56 Consult Case Management - Discharge Planning Routine 03/14/19 10:59 Consult Case Management - Discharge Planning Routine Ordered Studies 03/12/19 23:14 CT angio chest PE protocol Urgent 03/13/19 06:23 US thyroid Routine Hospital Course (1) COPD exacerbation: 73 y/o F with PMH HTN, Tobacco Abuse, COPD that is not O2 dependent presents with COPD exacerbation and PNA found on imaging. The following is the medical management during stay here: COPD exacerbation/R middle and RLL PNA -Pt was initially started on Vanc/Zosyn in ER, and was switched to IV Rocephin on the floors. Given her allergy to erythromycin, we did not additionally add Azithromycin. On d/c, pt will cont Cefdinir 300 mg BID for 5 days. For COPD, we gave Pulmicort Respules 0.5 mg inhaled BID, Duonebs q4h while awake and q2h prn, and PO Prednisone 40 mg. On d/c, pt will be given script for maintenance inhaler Spiriva, rescue inhaler Albuterol, and prednisone taper. A two step was done on day of d/c and determined pt will need home O2 on d/c, 2L with activity. Pt was recommended to purchase home pulsox to monitor O2 sats. Extensive smoking cessation education was also given during stay here. Left thyroid nodule -CT showed Subcentimeter hypodense left thyroid nodule. Follow up Thyroid ultrasound showed No suspicious thyroid nodules identified. TSH was WNL. This can be monitored moving forward. Esophagitis -CT showed Mild diffuse esophageal wall thickening, suggestive of esophagitis. Given tobacco use history, can consider EGD to assess for possible esophageal cancer on d/c. Otherwise, we continued Pantoprazole 40 mg p.o. Hypertension -We continued Losartan Tobacco use disorder -NicoDerm 14 mg patch On day of d/c, pt had no other acute concerns or complaints. Total Time Total Time Spent Total Time Spent (In Minutes): >30 min Discharge Plan Discharge Items Patient Disposition: Home - Self-Care Reason For Visit: PNEUMONIA Discharge Diagnosis: pneumonia, COPD exacerbation Discharge Goals: Improve disease control Activity: Resume your previous activity Non-emergency contact: Primary Care Provider Call non-emergency contact if: you have any medication questions Follow-up/Referrals: Salvador Diamond III, MD [Primary Care Provider] - Diet: Regular Addtl Provider Instructions: your acute illness that landed you in the hospital was a pneumonia (small, right upper lung) that then flared up your COPD (almost like an "asthma attack" in response to the inflammation from the pneumonia) pneumonia -fortunately this was pretty small, and appears to be easy to get better -you've been on ceftriaxone (rocephin) here in the hospital -- while there's not an exact oral equivalent of this medicine, an antibiotic called cefdinir is in the same class/really similar - so we'll finish out a course of treatment with this. you'll take 300mg in the morning and in the evening for 5 more days (10 more doses) -- first dose tomorrow (03/15) in the morning -as you follow up with Dr Diamond, if somehow you're not getting better fast enough, then he may need to extend the course of antibiotic a little longer, but this is not likely to happen COPD exacerbation -when someone has smoker's lung (COPD) and then gets an infection on top of it, a flare up of the COPD (kind of like a bronchitis, or like an asthma flare) commonly occurs. to get this better, not only do we need to treat the pneumonia (put out the fire, so to speak) but we also need to settle the inflammation that's in your lungs -the main treatment for this will be a course of prednisone - you'll be on 40mg daily for 2 days, then 30mg for 2 days, then 20mg for 2 days, then 10mg for 2 days, then stop. take it early in the day because it can make you hungry/hyper (and it stinks to be awake from the prednisone when you want to be resting) -we'll also be prescribing you a "rescue inhaler" (albuterol) that you can take up to every four hours if you feel tight, short of breath, wheezy COPD (baseline) -looking at your lung function tests from 2 years ago, you have quite severe COPD -- ie your lungs don't move air very well at all. it's no small miracle that you've not been a lot sicker/living in the hospital/etc with this -it is critical to your health that you try to stop smoking if at all possible - most likely if you continue to smoke, your health is going to start to take a steep turn towards worsening (most likely deteriorating to needing oxygen at all times, then settling into an ugly pattern of frequent trips to the hospital for pneumonia/bronchitis illness, and possibly even ) -we'll add a maintenance inhaler called spiriva (tiotropium) - this class of inhalers, called anticholinergics, tend to be "game changers" in managing COPD -- when people are on them they tend to land in the hospital less, and when they're in the hospital they tend to get out quicker; there's even some limited science to say that if people are on these kinds of inhalers and have quit smoking, there may even be a little bit of improvement in lung function. it is a once a day inhaler EVERY day, whether you feel good, bad, or in between. a lot of people will look at these inhalers as "as needed" and then not see any benefit --> they're not made to work on an "as needed basis" (the albuterol "rescue inhaler" is the as needed one) oxygen levels -we definitely recommend you get a pulse oximeter (available at nearly any pharmacy, etc) -- your lungs are "so used" to running low oxygen that you don't feel short of breath the way you should. because of this, it's quite helpful to check oxygen numbers to see how things are going -true normal would be about 97% and higher, "liveable" is generally above 90%, below that, you should be getting checked out, even if you're not feeling short of breath Prescriptions: New cefdinir 300 mg capsule 300 mg PO BID 5 Days Qty: 10 RF: 0 prednisone 10 mg tablet 10 mg PO UD Qty: 20 RF: 0 Spiriva with HandiHaler 18 mcg capsule, w/inhalation device 1 cap INH DAILY Qty: 30 RF: 0 albuterol sulfate 90 mcg/actuation HFA aerosol inhaler 1 puffs INH Q4H PRN (Reason: shortness) Qty: 18 RF: 0 Continued losartan 50 mg tablet 50 mg PO DAILY RF: 0 acetaminophen [Tylenol] 325 mg Capsule 325 mg PO QID PRN (Reason: Pain) RF: 0 Stand-Alone Forms: [facility] Discharge Orders: Discharge Order (Routine); Ordered 03/14/19 Ordered By: Mookie Cam Admission Data Admit Date/Time: 03/13/19 01:48 Attending Provider: Juventino Garland Admit Provider: Juventino Garland Primary Care Provider: Salvador Diamond III Other Providers: Juventino Garland Service: Medical Supervising Physician Co-Signing Physician Notes I personally examined the patient and verified all tran points of history and exam, discussed case, and agree with decision making with Dr Garcia. Feeling better. Breathing better. Walked with patient in the hallway, while she only got mildly dyspneic visibly, her pulse ox dropped to 87% fairly quickly. Vitals noted, in general she is awake alert pleasant no distress. HEENT normocephalic atraumatic mucous membranes moist. Breathing unlabored at rest, mildly labored with exertion, no significant dyspnea otherwise, no accessory muscle use. Skin shows no rashes no pallor or icterus. Cranial nerves II through XII are grossly intact gross motor and sensory intact. Right upper lobe pneumonia/COPD exacerbation/acute on chronic respiratory failureshe does not carry nosocomial risks, changed antibiotics to ceftriaxone. Considered azithromycin as well, but given that it is all 1 main area of consolidation, it is not likely to be atypicals, and given her questionable reaction to erythromycin (which she was unable to reliably recall other than breaking out in hives from something) it seems that the potential risk of provoking an allergic reaction with azithromycin is not worth the potential pulmonary anti-inflammatory benefit. She appears to be improving, we will discharge her on Cedinir 300 mg twice daily for 5 more days (completing 7 total days of antibiotics. For her COPDtapering dose of prednisone, start Spiriva, albuterol as needed, extensive education, encouraged smoke cessation. In review of her pulmonary function test from 2 years ago, her FEV1 was 0.91 with an FVC of approximately 1.55 and an FEV1 to FVC ratio 55%, and she has co ntinued to smoke meaning that these are likely worse now, so I suspect she chronically has a degree of respiratory failure made worse by the current situation. This makes it difficult to discern if her current hypoxia is only related to her acute (pneumonia and COPD exacerbation) or if it is more of a permanent finding that is only being on earth now. She will continue to follow- up with her PCP in this regard. Right now obviously she needs oxygen with 2 L with exertion, and I cautioned her to not smoke while she is on oxygen. DVT prophylaxisheparin subcu utilized during her hospital stay Stable for home, as above Resident Activity Tracking Resident Involvement: Resident Care Provided Care Provided: Adult Hospital Medicine
[2019-03-15] MEDS ORDERED: VANCOMYCIN TROUGH ONE (11:30)
== END 2019-03-14 15:05 | disposition home or self-care (01) | DRG 193 ==
LOC: ED 21:10 → 2S 03-13 01:48 → 2N 03-13 15:33

== ENCOUNTER 2021-04-21 05:35 | Inpatient (IN) ==
--- NOTE | 2021-04-21 05:41 | Emergency Department Note ---
Impression & Plan Dizziness, Unstable gait, Acute dehydration Admit to the [facility] ED Provider Note NAME: AUSTIN STINSON AGE: 75 SEX: F ARRIVES VIA: Ambulance INFORMANT: Patient ED PROVIDER(S): Rosaline Sanchez DO CHIEF COMPLAINT: Dizziness PLAN: Disposition: Admit to the [facility] Condition: Guarded MEDICAL DECISION MAKING: This is a 75-year-old female patient presents to the emergency department with a sudden onset of dizziness that awoke her from sleep at 4:30 AM. The patient had to crawl to the bathroom. The patient is significantly emotional here in the emergency department on my evaluation. Her is noted to be an inpatient. Laboratory studies showed some mild dehydration. She was given IV normal saline solution. The patient's dizziness seem to slightly improved but upon ambulation, the patient was extremely unsteady and weak on her feet. There was certainly a fall risk. After some discussion with the patient, she kept asking me repetitive questions. I did not think that she could safely go home and I felt she required more of a work-up to rule out a posterior circulation stroke. I discussed the case with Dr. Lyons from the [facility] service. Triage Nursing notes reviewed and agree with them. Additional history obtained from nursing staff Prior medical records reviewed Vital Signs: reviewed and remarkable for hypertension and bradycardia Differential diagnosis: Intracranial process, vertigo, dehydration, hypoglycemia, hyperglycemia, posterior circulation stroke ER treatment provided: IV normal saline bolus Diagnostics interpreted by me: ECG: Normal sinus rhythm at a rate of 60 with PACs. There is no ST segment elevation or signs of ischemia. Cardiac Monitoring: Sinus bradycardia at a rate of 57 Laboratory studies: See below Imaging studies: CT head/brain wo con CLINICAL HISTORY: sudden onset of dizziness COMPARISON STUDY: No previous studies for comparison. TECHNIQUE: Axial CT of the brain is performed from the vertex to the skull base. IV contrast was not administered for this examination. A dose lowering technique was utilized adhering to the principles of ALARA. CT DOSE: 614.27 mGy.cm FINDINGS: No intra or extra-axial mass lesions are visualized. There is no CT evidence of acute cortical infarction. There is no evidence of midline shift. There is no acute hemorrhage. No calvarial fractures are visualized. There are minor white matter hypodensities likely on a small vessel basis. There is no evidence of pathologic ventricular dilatation. There is a small right posterior mastoid effusion IMPRESSION: 1. Small right mastoid effusion 2. No acute intracranial findings HPI: 75/F arrives for evaluation of dizziness. The patient woke from a sound sleep at 4:30 AM with severe dizziness. Patient states that the room was spinning. She could not get up from her bed. In fact, she had to crawl from the bed to the bathroom. Patient called 911. It should be noted that the patient's is currently an inpatient here at this hospital. ROS: See above HPI for pertinent positives & negatives. A total of 10 systems reviewed and were otherwise negative. PAST MEDICAL HISTORY:See Below PAST SURGICAL HISTORY:See Below FAMILY HISTORY:See Below SOCIAL HISTORY:See Below HOME MEDICATIONS:See list ALLERGIES:See list VITALS:See Below PHYSICAL EXAMINATION: HEENT: Head - normocephalic and atraumatic. Pupils are equal, round, and reactive to light. Extraocular eye muscles are intact and sclera are anicteric. Ears - bilaterally patent canals with noninjected tympanic membranes and no evidence of hemotympanum. Nose - moist nasal mucosa without discharge. Mouth - moist buccal mucosa. Oropharynx is nonerythematous and there is no tonsillar exudate or edema noted. Neck: Supple; no JVD, nuchal rigidity, cervical lymphadenopathy, or auscultated bruits. Heart: Regular rate and rhythm. There is a normal S1 and S2 with no murmurs, clicks, or gallops appreciated. Lungs: Clear to auscultation bilaterally with no wheezes, rales, or rhonchi. Abdomen: Soft, completely nontender, nondistended, with good bowel sounds. There are no palpable pulsatile masses or hepatosplenomegaly. There is no guarding, rigidity, or rebound noted. Extremities: No evidence of cyanosis, clubbing, or edema. There are easily palpable peripheral pulses. Neuro:The patient is awake and alert, oriented to day, time, and place. Muscle strength is 5/5 in all 4 extremities. The patient has equal curtain supervisor strength and equal pedal push and pull. There are no cerebellar signs. ED COURSE: Times/Reassessments: 0540: The patient was evaluated in room C2. A twelve-lead EKG was obtained as described above. An order was placed for continuous cardiac monitoring. Patient was in a sinus bradycardia at a rate of 57. The patient went for CT scan of the brain as described above. Laboratory studies show some signs of dehydration. She was bolused with 500 cc of normal saline solution. 0635: Patient was reevaluated at this time and described feeling thirsty. She was given a glass of ice water. The patient states that the dizziness is subsiding. Nursing staff will attempt to ambulate the patient. Nursing staff explained that the patient did not ambulate well. She was increasingly dizzy and unsteady on her feet. She was felt to be a fall risk. I reevaluated the patient again and she seemed to have some repetitive questioning. I discussed the case with Dr. Lyons who will evaluate the patient for further care. Rosaline Sanchez DO Past Med/Surg History Medical History (Updated 04/21/21 @ 17:42 by Rosaline Sanchez DO) Chronic obstructive pulmonary disease Cigarette smoker Esophageal abnormality esophageal wall thickening per CT [facility] History of recent hospitalization 02/2019 - [facility] - Pneumonia History of renal stone History of skin cancer HTN (hypertension) Surgical History History of dilation and curettage History of nasal cauterization History of surgical removal of pilonidal cyst History of tonsillectomy Status post re-excision of malignant skin lesion Family History Mother Bone cancer Breast cancer Father Cirrhosis Stroke syndrome Other Alcoholism Myocardial infarction Tobacco abuse Social History Smoking Status: Current every day smoker Tobacco Type: Cigarettes Age Started Using Tobacco: 17; Cigarettes Per Day: 5-7; Second Hand Exposure: Yes ( A CHILD); Do You Dip or Chew Tobacco: No; Hx Alcohol Use: No Hx Substance Use: No Preferred Language: Mosotho Communication Ability: Effective 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 Beliefs That Will Affect Care: None marital status: Current Living Situation: Alone and Spouse Other Information That Helps Us Care for You: No Feels Safe at Home: Yes Safety Concerns: Feels Safe At This Time Seatbelt Use: always Assistive Devices: None Allergies Allergies Allergy/AdvReac Type Severity Reaction Status Date / Time erythromycin base Allergy Intermediate HIVES, Verified 12/24/19 11:27 SWELLING Home Meds Previous Rx's Medication Instructions Recorded losartan 50 mg tablet 50 mg PO DAILY #90 tab 10/11/20 umeclidinium 62.5 mcg-vilanterol 1 inh INH DAILY #3 inhaler 12/19/20 25 mcg/actuation powdr for inhalation (Anoro Ellipta) Results & Data (ED) Vital Signs Vital Signs - 24 hr 04/21/21 05:42 04/21/21 05:44 04/21/21 05:48 Temperature 36.8 C Temperature Source Oral Pulse Rate - Lying Pulse Rate - Sitting Pulse Rate - Standing Pulse Rate 60 92 H 57 L Pulse Rate from SpO2 Sensor 92 H Pulse Rhythm Regular Regular Pulse Strength Normal Respiratory Rate 20 18 Respiratory Effort / Characteristics Non-Labored Spontaneous Respiratory Depth Normal Respiratory Pattern Regular Blood Pressure - Lying Blood Pressure - Sitting Blood Pressure- Standing Blood Pressure 203/73 H 203/73 H Blood Pressure Mean 116 116 Blood Pressure Position Sitting Pulse Oximetry 96 95 96 Oxygen Delivery Method Room Air Room Air Sepsis Recent Fever Within 48 Hours No Sepsis New/Unexplained Change in Mental Status N/A Sepsis Action Taken by Nursing No Action Required 04/21/21 06:00 04/21/21 06:30 04/21/21 07:00 Temperature Temperature Source Pulse Rate - Lying 67 Pulse Rate - Sitting 79 Pulse Rate - Standing 108 H Pulse Rate 58 L 67 68 Pulse Rate from SpO2 Sensor 60 67 Pulse Rhythm Pulse Strength Respiratory Rate 22 22 19 Respiratory Effort / Characteristics Respiratory Depth Respiratory Pattern Blood Pressure - Lying 193/81 H Blood Pressure - Sitting 199/88 H Blood Pressure- Standing 175/76 H Blood Pressure 193/81 H 187/71 H 188/85 H Blood Pressure Mean 118 109 119 Blood Pressure Position Pulse Oximetry 95 96 95 Oxygen Delivery Method Sepsis Recent Fever Within 48 Hours Sepsis New/Unexplained Change in Mental Status Sepsis Action Taken by Nursing Laboratory Data Result diagrams: 04/21/21 05:50 04/21/21 05:50 Lab Results 04/21/21 04/21/21 04/21/21 Range/Units 05:50 05:50 06:45 WBC 6.16 (4.8-10.8) K/uL RBC 4.57 (4.2-5.4) M/uL Hgb 15.0 (12.0-16.0) g/dL Hct 44.3 (37-47) % MCV 96.9 (80-100) fL MCH 32.8 (25-34) pg MCHC 33.9 (32-36) g/dL RDW Std Deviation 48.8 H (36.4-46.3) fL RDW Coeff of Petty 13.7 (11.5-14.5) % Plt Count 220 (130-400) K/uL MPV 9.2 (7.4-10.4) fL Immature Gran % (Auto) 0.0 % Neut % (Auto) 53.1 % Lymph % (Auto) 33.9 % [place] % (Auto) 9.9 % Eos % (Auto) 2.6 % Baso % (Auto) 0.5 % Neut # (Auto) 3.27 (1.4-6.5) K/uL Lymph # (Auto) 2.09 (1.2-3.4) K/uL [place] # (Auto) 0.61 H (0.11-0.59) K/uL Eos # (Auto) 0.16 (0-0.5) K/uL Baso # (Auto) 0.03 (0-0.2) K/uL Immature Gran # (Auto) 0.00 (0.00-0.02) K/uL Sodium 142 (136-145) mmol/L Potassium 3.9 (3.5-5.1) mmol/L Chloride 109 H (98-107) mmol/L Carbon Dioxide 31 (21-32) mmol/L Anion Gap 2.0 L (3-11) BUN 23 H (7-18) mg/dl Creatinine 0.75 (0.6-1.2) mg/dl Est Cr Clr Drug Dosing 51.0 ml/min Est GFR ( Amer) 90.4 ml/min Est GFR (Non-Af Amer) 78.0 ml/min BUN/Creatinine Ratio 31.3 H (10-20) Glucose 90 (70-99) mg/dl Calcium 8.8 (8.5-10.1) mg/dl Total Bilirubin 0.4 (0.2-1) mg/dl AST 19 (15-37) U/L ALT 28 (12-78) U/L Alkaline Phosphatase 63 (45-117) U/L Troponin I < 0.015 (0-0.045) ng/ml Total Protein 7.1 (6.4-8.2) gm/dl Albumin 3.7 (3.4-5.0) gm/dl Globulin 3.4 (2.5-4.0) gm/dl Albumin/Globulin Ratio 1.1 (0.9-2) Urine Color Yellow Urine Appearance Cloudy A (Clear) Urine pH 7.5 (4.5-7.5) Ur Specific [place] 1.017 (1.000-1.030) Urine Protein Negative (Negative) Urine Glucose (UA) Negative (Negative) Urine Ketones Negative (Negative) Urine Blood Negative (Negative) Urine Nitrite Negative (Negative) Urine Bilirubin Negative (Negative) Urine Urobilinogen Negative (Negative) Ur Leukocyte Esterase Negative (Negative) Urine WBC (Auto) 1-5 (0-5) /hpf Urine RBC (Auto) 0-4 (0-4) /hpf U Hyaline Cast (Auto) 1-5 (0-5) /lpf U Epithel Cells (Auto) >30 H (0-5) /lpf Urine Bacteria (Auto) Negative (Negative) Urine Yeast Not Reportable COVID-19 Eval Order SARS-CoV-2 (PCR) (Negative) 04/21/21 04/21/21 Range/Units 07:45 07:45 WBC (4.8-10.8) K/uL RBC (4.2-5.4) M/uL Hgb (12.0-16.0) g/dL Hct (37-47) % MCV (80-100) fL MCH (25-34) pg MCHC (32-36) g/dL RDW Std Deviation (36.4-46.3) fL RDW Coeff of Petty (11.5-14.5) % Plt Count (130-400) K/uL MPV (7.4-10.4) fL Immature Gran % (Auto) % Neut % (Auto) % Lymph % (Auto) % [place] % (Auto) % Eos % (Auto) % Baso % (Auto) % Neut # (Auto) (1.4-6.5) K/uL Lymph # (Auto) (1.2-3.4) K/uL [place] # (Auto) (0.11-0.59) K/uL Eos # (Auto) (0-0.5) K/uL Baso # (Auto) (0-0.2) K/uL Immature Gran # (Auto) (0.00-0.02) K/uL Sodium (136-145) mmol/L Potassium (3.5-5.1) mmol/L Chloride (98-107) mmol/L Carbon Dioxide (21-32) mmol/L Anion Gap (3-11) BUN (7-18) mg/dl Creatinine (0.6-1.2) mg/dl Est Cr Clr Drug Dosing ml/min Est GFR ( Amer) ml/min Est GFR (Non-Af Amer) ml/min BUN/Creatinine Ratio (10-20) Glucose (70-99) mg/dl Calcium (8.5-10.1) mg/dl Total Bilirubin (0.2-1) mg/dl AST (15-37) U/L ALT (12-78) U/L Alkaline Phosphatase (45-117) U/L Troponin I (0-0.045) ng/ml Total Protein (6.4-8.2) gm/dl Albumin (3.4-5.0) gm/dl Globulin (2.5-4.0) gm/dl Albumin/Globulin Ratio (0.9-2) Urine Color Urine Appearance (Clear) Urine pH (4.5-7.5) Ur Specific [place] (1.000-1.030) Urine Protein (Negative) Urine Glucose (UA) (Negative) Urine Ketones (Negative) Urine Blood (Negative) Urine Nitrite (Negative) Urine Bilirubin (Negative) Urine Urobilinogen (Negative) Ur Leukocyte Esterase (Negative) Urine WBC (Auto) (0-5) /hpf Urine RBC (Auto) (0-4) /hpf U Hyaline Cast (Auto) (0-5) /lpf U Epithel Cells (Auto) (0-5) /lpf Urine Bacteria (Auto) (Negative) Urine Yeast COVID-19 Eval Order Covid19 at [facility] SARS-CoV-2 (PCR) NEGATIVE (Negative) Administered Medications Losartan Potassium (Losartan Potassium 50 Mg Tab) 50 mg PO DAILY PAULINO Stop: 05/21/21 10:35 Last Admin: 04/21/21 13:19 Dose: 50 mg Documented by: [id number] Meclizine HCl (Meclizine 12.5 Mg Tab) 12.5 mg PO Q8H PRN PRN Reason: Vertigo Stop: 05/21/21 13:48 Last Admin: 04/21/21 14:27 Dose: 12.5 mg Documented by: [id number] Umeclidinium/Vilanterol (Umeclidinium/Vilanterol 62.5/25mcg 7 Puffs/Inhaler) 1 puffs INH DAILY PAULINO Stop: 05/21/21 11:59 Last Admin: 04/21/21 13:19 Dose: 1 puffs Documented by: [id number] Discontinued Medications Amlodipine Besylate (Amlodipine Besylate 5 Mg Tab) 5 mg PO ONE ONE Stop: 04/21/21 14:01 Last Admin: 04/21/21 14:27 Dose: 5 mg Documented by: [id number] Gadobutrol (Gadobutrol 65ml Vial) 4.9 ml IV ONCE ONE Stop: 04/21/21 09:53 Last Admin: 04/21/21 09:48 Dose: 4.9 ml Documented by: [id number] Sodium Chloride (Nss) 500 mls @ 999 mls/hr IV .Q31M ONE Stop: 04/21/21 07:03 Last Infusion: 04/21/21 07:20 Dose: 0 mls/hr Documented by: [id number] Admin: 04/21/21 06:40 Dose: 999 mls/hr Documented by: [id number] Imaging Data Radiologist's Impression: Head CT 04/21/21 05:59 CT head/brain wo con CLINICAL HISTORY: sudden onset of dizziness COMPARISON STUDY: No previous studies for comparison. TECHNIQUE: Axial CT of the brain is performed from the vertex to the skull base. IV contrast was not administered for this examination. A dose lowering technique was utilized adhering to the principles of ALARA. CT DOSE: 614.27 mGy.cm FINDINGS: No intra or extra-axial mass lesions are visualized. There is no CT evidence of acute cortical infarction. There is no evidence of midline shift. There is no acute hemorrhage. No calvarial fractures are visualized. There are minor white matter hypodensities likely on a small vessel basis. There is no evidence of pathologic ventricular dilatation. There is a small right posterior mastoid effusion IMPRESSION: 1. Small right mastoid effusion 2. No acute intracranial findings ACT 112: Negative or not required by law. Electronically signed by: King Young M.D. 04/21/2021 6:45 AM Discharge Plan Visit Data Chief Complaint: Dizziness Stated Complaint: DIZZINESS ED Provider: Rosaline Sanchez Discharge Problem: Dizziness, Unstable gait, Acute dehydration Patient Disposition: Admitted As Inpatient Discharge Instructions Interventions: ED Discharge Assessment Last Done: 04/21/21 09:38
[2021-04-21 06:02] LABS: Basophils # (auto) 0.03 K/uL (0-0.2); Basophils % (auto) 0.5 %; Eosinophils # (auto) 0.16 K/uL (0-0.5); Eosinophils % (auto) 2.6 %; Hematocrit (blood only) 44.3 % (37-47); Lymphocytes # (auto) 2.09 K/uL (1.2-3.4); Lymphocytes % (auto) 33.9 %; Mean Corpuscular Hemoglobin 32.8 pg (25-34); Mean Corpuscular Hgb Conc 33.9 g/dL (32-36); Mean Corpuscular Volume 96.9 fL (80-100); Mean Platelet Volume 9.2 fL (7.4-10.4); Monocytes # (auto) 0.61 K/uL (0.11-0.59); Monocytes % (auto) 9.9 %; Neutrophils # (auto) 3.27 K/uL (1.4-6.5); Neutrophils % (auto) 53.1 %; Platelet Count 220 K/uL (130-400); RDW Coefficient of Variation 13.7 % (11.5-14.5); RDW Standard Deviation 48.8 fL (36.4-46.3); Red Blood Count 4.57 M/uL (4.2-5.4); White Blood Count 6.16 K/uL (4.8-10.8)
[2021-04-21 06:19] LABS: Alanine Aminotransferase 28 U/L (12-78); Albumin Level 3.7 gm/dl (3.4-5.0); Aspartate Aminotransferase 19 U/L (15-37); BUN Creatinine Ratio 31.3 (10-20); Blood Urea Nitrogen 23 mg/dl (7-18); Calcium 8.8 mg/dl (8.5-10.1); Carbon Dioxide 31 mmol/L (21-32); Chloride 109 mmol/L (98-107); Est GFR (African American) 90.4 ml/min; Glucose 90 mg/dl (70-99); Potassium 3.9 mmol/L (3.5-5.1); Sodium 142 mmol/L (136-145)
[2021-04-21 06:23] LABS: Albumin Globulin Ratio 1.1 (0.9-2); Alkaline Phosphatase 63 U/L (45-117); Bilirubin,Total 0.4 mg/dl (0.2-1); Globulin 3.4 gm/dl (2.5-4.0); Total Protein 7.1 gm/dl (6.4-8.2); Troponin I < 0.015 ng/ml (0-0.045)
[2021-04-21] MEDS ORDERED: SODIUM CHLORIDE 0.9% 500 ML IV ONE (06:33)
--- NOTE | 2021-04-21 06:46 | CT Scan Report ---
CT head/brain wo con CLINICAL HISTORY: sudden onset of dizziness COMPARISON STUDY: No previous studies for comparison. TECHNIQUE: Axial CT of the brain is performed from the vertex to the skull base. IV contrast was not administered for this examination. A dose lowering technique was utilized adhering to the principles of ALARA. CT DOSE: 614.27 mGy.cm FINDINGS: No intra or extra-axial mass lesions are visualized. There is no CT evidence of acute cortical infarc tion. There is no evidence of midline shift. There is no acute hemorrhage. No calvarial fractures ar e visualized. There are minor white matter hypodensities likely on a small vessel basis. There is no evidence of pathologic ventricular dilatation. There is a small right posterior mastoid effusion IMPRESSION: 1. Small right mastoid effusion 2. No acute intracranial findings ACT 112: Negative or not required by law. Electronically signed by: King Young M.D. 04/21/2021 6:45 AM
[2021-04-21 07:27] LABS: Appearance Urine Cloudy (Clear); Bacteria Urine Automated Negative (Negative); Bilirubin Urine Negative (Negative); Blood Urine Negative (Negative); Color Urine Yellow; Epithelial Cell Urine Auto >30 /lpf (0-5); Glucose Urine UA Negative (Negative); Ketones Urine Negative (Negative); Leukocyte Esterase Urine Negative (Negative); Nitrite Urine Negative (Negative); Protein Urine Negative (Negative); RBC Urine Automated 0-4 /hpf (0-4); Specific Gravity Urine 1.017 (1.000-1.030); Urobilinogen Urine Negative (Negative); pH Urine 7.5 (4.5-7.5)
--- NOTE | 2021-04-21 09:16 | Electrocardiogram Report ---
Test Reason : Blood Pressure : / mmHG Vent. Rate : 060 BPM Atrial Rate : 060 BPM P-R Int : 174 ms QRS Dur : 076 ms QT Int : 412 ms P-R-T Axes : 082 051 045 degrees QTc Int : 412 ms Poor data quality, interpretation may be adversely affected Sinus rhythm with Premature atrial complexes Possible Old Anterior infarct (cited on or before 12-MAR-2019) Abnormal ECG When compared with ECG of 18-SEP-2019 05:53, Premature atrial complexes are now Present Confirmed by Aric Shore ([id number]) on 04/21/2021 9:15:50 AM Referred By: REFERRED SELF Confirmed By:Aric Shore
[2021-04-21] MEDS ORDERED: GADOBUTROL 65ML VIAL IV ONE (09:52)
[2021-04-21] MEDS ORDERED: LOSARTAN POTASSIUM 50 MG TAB PO SCH (10:36)
[2021-04-21] MEDS ORDERED: ONDANSETRON INJ 2 MG/ML 2 ML VIAL IV PRN (10:36)
[2021-04-21] MEDS ORDERED: ACETAMINOPHEN 325 MG TAB PO PRN (10:36)
[2021-04-21] MEDS ORDERED: ENOXAPARIN INJ 40 MG/0.4 ML SYR SQ SCH (10:36)
--- NOTE | 2021-04-21 10:47 | Magnetic Resonance Report ---
MRI OF THE BRAIN COMBO CLINICAL HISTORY: Vertigo. COMPARISON STUDY: CT of the brain dated 04/21/2021. TECHNIQUE: MRI of the brain was performed utilizing various T1 and T2-weighted sequences in the axial , sagittal, and coronal planes. Contrast-enhanced sequences were acquired following the administratio n of 4.9 cc of Gadavist. FINDINGS: Brain parenchyma: There is age-related involutional change noting mild to moderate patchy subcortical and periventricular microangiopathic disease. There is no hemorrhage or mass effect. There is no res tricted diffusion to suggest acute ischemia. No enhancing mass lesion is identified on the postcontra st images. Brown-white matter differentiation is preserved. No extra-axial fluid collection is seen. T he cerebellar tonsils are normal in configuration. Ventricles, sulci, and cisterns: Prominent secondary to involutional change. Pituitary and sella: Unremarkable. Intracranial vasculature: Normal flow voids are maintained at the skull base. Orbits: The bony orbits are grossly intact. Orbital contents are normal in appearance. Sinuses and mastoids: The paranasal sinuses are clear. There is a right mastoid effusion. The mastoid air cells are well pneumatized. Calvarium: Unremarkable. Cervical cord: Partially visualized cervical spinal cord is normal in morphology and signal intensity . IMPRESSION: No acute intracranial abnormality. ACT 112: Negative or not required by law. Electronically signed by: Marek Soares M.D. 04/21/2021 10:46 AM
[2021-04-21] MEDS: UMECLIDINIUM/VILANTEROL 62.5/25MCG 7 PUFFS/INHALER INH SCH (13:19)
[2021-04-21] MEDS ORDERED: MECLIZINE 12.5 MG TAB PO PRN (13:49)
[2021-04-21] MEDS ORDERED: amLODIPine BESYLATE 5 MG TAB PO ONE (14:00)
--- NOTE | 2021-04-21 15:02 | History & Physical Report ---
Date of Service April 21, 2021 Assessment & Plan (1) Dizziness: Plan: suspect it is related to accelerated HTN MRI brain is normal, specifically no posterior stroke, no tumor use Meclizine 12.5mg PRN PT/OT evaluations, hope to go home tomorrow (2) Unstable gait: Plan: PT/OT suspect benign positional vertigo or related to HTN (3) Hypertension: Plan: accelerated HTN, much higher than normal, says it is 120 systolic in office she took Losartan last night (her normal time) and got another dose this morning will increase Losartan to 100mg add Norvasc 10mg see how she responds HR is in 50's so cannot add beta yoel repeat BMP in the morning Admission and Anticipated Discharge Date Admission Date: April 21, 2021 History of Present Illness Chief Complaint: I was so dizzy I could not walk Primary Care Provider: Salvador Diamond MD 75 yo female with no history of vertigo, only HTN, presented to the ED with acute onset of dizziness. Happened acutely this morning when getting up from bed. She had to crawl to the bathroom but could not even lift herself to the toilet. She described it as the room was spinning. She had to call EMS. In the ED her BP was markedly elevated, > 200. CT head was normal. ED gave her some meclizine, tried to control blood pressure and see if she could go home. Then she was slightly forgetful so they requested admission for MRI brain. Patient is very active, takes care of her sick but she is sure to eat well, stay well hydrated, gets exercise. She is puzzled by this episodes. Admits to more stress and anxiety recently with her being sick, in and out of hospital for a few weeks. He is currently hospitalized. Allergies Allergy/AdvReac Type Severity Reaction Status Date / Time erythromycin base Allergy Intermediate HIVES, Verified 12/24/19 11:27 SWELLING Home Medications Medication Instructions Recorded Confirmed Type losartan 50 mg tablet 50 mg PO DAILY #90 tab 10/11/20 04/21/21 Rx umeclidinium 62.5 mcg-vilanterol 1 inh INH DAILY #3 inhaler 12/19/20 04/21/21 Rx 25 mcg/actuation powdr for inhalation (Anoro Ellipta) Past Med/Surg History Medical History Chronic obstructive pulmonary disease Cigarette smoker Esophageal abnormality esophageal wall thickening per CT [facility] History of recent hospitalization 02/2019 - [facility] - Pneumonia History of renal stone History of skin cancer HTN (hypertension) Surgical History History of dilation and curettage History of nasal cauterization History of surgical removal of pilonidal cyst History of tonsillectomy Status post re-excision of malignant skin lesion Family History Mother Bone cancer Breast cancer Father Cirrhosis Stroke syndrome Other Alcoholism Myocardial infarction Tobacco abuse Social History Smoking Status: Current every day smoker Tobacco Type: Cigarettes Age Started Using Tobacco: 17; Cigarettes Per Day: 5-7; Second Hand Exposure: Yes ( A CHILD); Do You Dip or Chew Tobacco: No; Hx Alcohol Use: No Hx Substance Use: No Preferred Language: Irish Communication Ability: Effective [employer] Required: No Beliefs That Will Affect Care: None marital status: Current Living Situation: Alone and Spouse Other Information That Helps Us Care for You: No Feels Safe at Home: Yes Safety Concerns: Feels Safe At This Time Seatbelt Use: always Assistive Devices: None Review of Systems Review of Systems: All systems reviewed & are unremarkable except as noted in HPI & below Constitutional: no fever, no sweats, no fatigue, no weakness and no weight loss Ear, Nose, Mouth, Throat: + dizziness; no ear pain, no tinnitus and no hearing loss Respiratory: no cough, no dyspnea and no wheezing Cardiovascular: no chest pain, no palpitations, no lightheadedness, no syncope and no edema Gastrointestinal: no abdominal pain, no nausea, no vomiting, no constipation and no diarrhea/loose stools Neurologic: + unsteadiness and + dizziness; no syncope and no headache(s) Physical Exam Constitutional: WD/WN, vitals as above Eyes: PERRL, conjunctivae normal, anicteric sclerae (no nystagmus) ENMT: Ears: no hearing impairment and no TM abnormality Nose: no nasal discharge Mouth: no oral mucosal abnormality and oral mucous membranes not dry Neck: trachea midline, no thyromegaly Respiratory: normal respiratory effort, lungs clear to auscultation Cardiovascular: RRR, no murmur, no edema Gastrointestinal (Abdomen): normal bowel sounds, soft, nontender, no hepatosplenomegaly Musculoskeletal: no cyanosis or clubbing, extremities motor strength 5/5 Skin: no rashes, warm and dry Neurologic: patellar DTR's 2+ bilat, sensation intact and PERRL, EOMI, accommodation nl, no face palsy, no dysarthria Coordination: normal [id number] test, normal Romberg test, does not sway with eyes open and normal rapid alternating movements Psychiatric: A+Ox3, euthymic affect Results & Data Results & Data ([facility]) Vital Signs (Past 12 Hours) Vital Signs Temp Pulse Pulse Resp BP BP Pulse Ox 04/21/21 10:51 36.5 C 65 18 187/64 H 97 04/21/21 10:36 36.5 C 65 18 187/64 H 97 04/21/21 08:00 75 22 199/89 H 98 04/21/21 07:00 68 19 188/85 H 95 04/21/21 06:30 67 22 187/71 H 96 04/21/21 06:00 58 L 22 193/81 H 95 04/21/21 05:48 57 L 96 04/21/21 05:44 92 H 18 203/73 H 95 04/21/21 05:42 36.8 C 60 20 203/73 H 96 Laboratory Results Laboratory Results - last 24 hr 04/21/21 04/21/21 04/21/21 05:50 05:50 06:45 WBC 6.16 RBC 4.57 Hgb 15.0 Hct 44.3 MCV 96.9 MCH 32.8 MCHC 33.9 RDW Std Deviation 48.8 H RDW Coeff of Petty 13.7 Plt Count 220 MPV 9.2 Immature Gran % (Auto) 0.0 Neut % (Auto) 53.1 Lymph % (Auto) 33.9 [place] % (Auto) 9.9 Eos % (Auto) 2.6 Baso % (Auto) 0.5 Neut # (Auto) 3.27 Lymph # (Auto) 2.09 [place] # (Auto) 0.61 H Eos # (Auto) 0.16 Baso # (Auto) 0.03 Immature Gran # (Auto) 0.00 Sodium 142 Potassium 3.9 Chloride 109 H Carbon Dioxide 31 Anion Gap 2.0 L BUN 23 H Creatinine 0.75 Est Cr Clr Drug Dosing 51.0 Est GFR ( Amer) 90.4 Est GFR (Non-Af Amer) 78.0 BUN/Creatinine Ratio 31.3 H Glucose 90 Calcium 8.8 Total Bilirubin 0.4 AST 19 ALT 28 Alkaline Phosphatase 63 Troponin I < 0.015 Total Protein 7.1 Albumin 3.7 Globulin 3.4 Albumin/Globulin Ratio 1.1 Urine Color Yellow Urine Appearance Cloudy A Urine pH 7.5 Ur Specific Cascade 1.017 Urine Protein Negative Urine Glucose (UA) Negative Urine Ketones Negative Urine Blood Negative Urine Nitrite Negative Urine Bilirubin Negative Urine Urobilinogen Negative Ur Leukocyte Esterase Negative Urine WBC (Auto) 1-5 Urine RBC (Auto) 0-4 U Hyaline Cast (Auto) 1-5 U Epithel Cells (Auto) >30 H Urine Bacteria (Auto) Negative Urine Yeast Not Reportable COVID-19 Eval Order SARS-CoV-2 (PCR) 04/21/21 04/21/21 07:45 07:45 WBC RBC Hgb Hct MCV MCH MCHC RDW Std Deviation RDW Coeff of Petty Plt Count MPV Immature Gran % (Auto) Neut % (Auto) Lymph % (Auto) [place] % (Auto) Eos % (Auto) Baso % (Auto) Neut # (Auto) Lymph # (Auto) [place] # (Auto) Eos # (Auto) Baso # (Auto) Immature Gran # (Auto) Sodium Potassium Chloride Carbon Dioxide Anion Gap BUN Creatinine Est Cr Clr Drug Dosing Est GFR ( Amer) Est GFR (Non-Af Amer) BUN/Creatinine Ratio Glucose Calcium Total Bilirubin AST ALT Alkaline Phosphatase Troponin I Total Protein Albumin Globulin Albumin/Globulin Ratio Urine Color Urine Appearance Urine pH Ur Specific Cascade Urine Protein Urine Glucose (UA) Urine Ketones Urine Blood Urine Nitrite Urine Bilirubin Urine Urobilinogen Ur Leukocyte Esterase Urine WBC (Auto) Urine RBC (Auto) U Hyaline Cast (Auto) U Epithel Cells (Auto) Urine Bacteria (Auto) Urine Yeast COVID-19 Eval Order Covid19 at [facility] SARS-CoV-2 (PCR) NEGATIVE Diagnostic Findings MRI brain: no stroke, no tumor Code Status & VTE Plan VTE Prophylaxis Plan VTE Prophylaxis will be ordered: Yes PG Care Time/CCT Total # of Minutes Spent Total Time Spent with Patient: Total time spent is greater than 50% in coordination of care (as documented) at patient's floor/unit and/or counseling patient: Coding Level of Care Code INT OBSERVATION CARE 50M LVL 2 Diagnoses Dizziness R42 Unstable gait R26.81 Hypertension I10
[2021-04-21] MEDS: HEPARIN SOD 5,000 UNIT/0.5 ML VIAL SQ SCH (20:53)
[2021-04-22] MEDS: LOSARTAN POTASSIUM 50 MG TAB PO SCH (08:56)
[2021-04-22] MEDS: amLODIPine BESYLATE 5 MG TAB PO SCH (08:56)
[2021-04-22] MEDS: UMECLIDINIUM/VILANTEROL 62.5/25MCG 7 PUFFS/INHALER INH SCH (08:56)
[2021-04-22] MEDS: HEPARIN SOD 5,000 UNIT/0.5 ML VIAL SQ SCH ×2 (08:58→22:10)
--- NOTE | 2021-04-22 13:48 | Hospitalist Progress Note ---
Date of Service April 22, 2021 Assessment & Plan (1) Dizziness: Plan: - Possibly multi-factorial - related to orthostatic hypotension vs. vertigo vs. hypoglycemia. - BP was incidentally checked this morning, was noted to be 60 and 55 - improved to 89 with oral glucose. Will monitor blood glucose checks q6hr x 24 hours. - MRI brain was negative for evidence of masses, hemorrhage or CVA. - Orthostatic vital signs today did show ~27 drop in systolic BP - start D5 + 0 .45% NS at 80 cc/hr. - PT/OT evaluation ordered for discharge planning + evaluation of possible BPPV. - Meclizine prn - did receive 1 dose on 04/21/21. (2) Unstable gait: Plan: - Possibly related to issues noted above. - PT/OT evaluation pending. (3) Bradycardia: Plan: - HR has decreased to 50 to 60 range, possibly contributing to dizziness. - Continue to monitor. (4) Hypoglycemia: Plan: - Please see discussion noted above. - Hgb A1C in the AM. (5) Hypertension: Plan: - Has been uncontrolled during this admission - possibly related to anxiety with hospitalization. - Losartan was increased to 100 mg; Norvasc was added, 10 mg daily. - Cannot add beta yoel d/t bradycardia. - BP has improved from the 180 to 190 range, now 150 to 160s. DVT ppx: Heparin 5,000 units BID. Dispo: Tele; will monitor glucose checks over the next 24 hours. PT/OT consults pending. Admission and Anticipated Discharge Date Admission Date: April 21, 2021 Supervising Physician Co-Signing Physician Notes I personally examined the patient and verified all tran points of history and exam, discussed case, and agree with decision making with Chidi TORRES feeling better but still dizzy aracelis w change in position vitals noted pleasant nad no focal deficits dizzy - mutlifactorial, some seems inner ear, some orthostatic, some maybe just pure stress related. work on all. PT/OT, home once more steady on feet. otherwise as above Subjective Ms. Berman is feeling slightly improved; does still have occasional dizziness with movement. Her initial episode was described as vertigo but she now c/o lightheadedness. Her BP remains elevated, was 180 to 190's but has now improved to 150-160's with medication adjustments. Interestingly, a random blood glucose was obtained this afternoon and noted to be 60 followed by 55; received glucose with improvement to 89. This could be contributing to dizziness; Her HR has also decreased; has been in the 50's since 19:00 last evening. She will require a PT evaluation. Review of Systems Review of Systems: Constitutional: Negative for weight loss, night sweats, or fever Eyes: Negative for event change of vision ENT: Negative for epistaxis, nasal discharge, sore throat, or deafness Cardiovascular: Negative for anginal type chest pain, palpitations, dizziness, diaphoresis Respiratory: Negative for new shortness of breath,hemoptysis, or purulent cough Gastrointestinal: Negative for diarrhea, hematemesis, melena, nausea, vomiting, or dyspepsia Integumentary (skin): Negative for rash or jaundice discoloration Genitourinary: Negative for urinary frequency, hematuria, or dysuria Neurological: +Dizziness; Negative for weakness, seizure activity, headache Lymphatic/Hematologic: Negative for petechiae, bleeding or new adenopathy Musculoskeletal: Negative for new joint or back pain Allergic/Immunologic: Negative for unusual rash or pruritis Physical Exam Physical Exam: Constitutional: Vitals are stable Respiratory: Lung sounds were generally clear bilaterally. Cardiovascular: Heart was RRR without significant murmur, gallops or rubs. Gastrointestinal: No palpable hepatic or splenomegaly. The abdomen was soft with normal bowel sounds. Musculoskeletal System: The musculoskeletal system seemed concordant with age. Skin: The skin was negative for jaundice. Neurologic Exam: The exam was negative for any focal findings. Deep tendon reflexes were equal and symmetrical. Extremities: Negative for edema or erythema Results & Data Results & Data ([facility]) Vital Signs (Past 12 Hours) Vital Signs Temp Pulse Pulse Resp BP BP Pulse Ox 04/22/21 12:01 36.8 C 60 16 168/78 H 97 04/22/21 08:02 36.8 C 52 L 16 140/60 96 04/22/21 07:24 36.8 C 56 L 18 158/84 H 96 04/22/21 03:40 36.6 C 72 16 177/81 H 91 Laboratory Results 04/22/21 04/22/21 04/22/21 Range/Units 11:50 11:25 11:24 POC Glucose 89 55 L* 60 L* (70-99) mg/dl 04/22/21 04/22/2104/22/21 Range/Units 11:50 11:25 11:24 POC Glucose 89 55 L* 60 L* (70-99) mg/dl PG Care Time/CCT Total # of Minutes Spent Total Time Spent with Patient: Total time spent is greater than 50% in coordination of care (as documented) at patient's floor/unit and/or counseling patient: Coding [place] [address] Subseq Obs Care Lvl 3 Patient Type Established Diagnoses Dizziness R42 Unstable gait R26.81 Hypertension I10 Hypoglycemia E16.2 Bradycardia R00.1
[2021-04-22] MEDS: D5W AND 1/2NSS 1,000 ML IV SCH (14:38)
[2021-04-22] MEDS: NICOTINE POLACRILEX 2 MG GUM MT PRN (15:51)
[2021-04-23] MEDS: D5W AND 1/2NSS 1,000 ML IV SCH ×2 (02:27→14:04)
[2021-04-23 07:27] LABS: Hematocrit (blood only) 44.2 % (37-47); Hemoglobin 14.7 g/dL (12.0-16.0); Mean Corpuscular Hemoglobin 32.2 pg (25-34); Mean Corpuscular Hgb Conc 33.3 g/dL (32-36); Mean Corpuscular Volume 96.9 fL (80-100); Mean Platelet Volume 9.4 fL (7.4-10.4); Platelet Count 206 K/uL (130-400); RDW Coefficient of Variation 13.7 % (11.5-14.5); RDW Standard Deviation 48.8 fL (36.4-46.3); Red Blood Count 4.56 M/uL (4.2-5.4); White Blood Count 6.51 K/uL (4.8-10.8)
[2021-04-23 07:45] LABS: Albumin Level 3.4 gm/dl (3.4-5.0); BUN Creatinine Ratio 24.5 (10-20); Calcium 9.3 mg/dl (8.5-10.1); Creatinine Clr Calc Pharmacy 54.1 ml/min; Est GFR (African American) 99.7 ml/min; Potassium 3.8 mmol/L (3.5-5.1)
[2021-04-23 07:47] LABS: Bilirubin,Total 0.6 mg/dl (0.2-1); Globulin 3.5 gm/dl (2.5-4.0); Total Protein 6.9 gm/dl (6.4-8.2)
[2021-04-23] MEDS: amLODIPine BESYLATE 5 MG TAB PO SCH (09:47)
[2021-04-23] MEDS: LOSARTAN POTASSIUM 50 MG TAB PO SCH (09:48)
[2021-04-23] MEDS: UMECLIDINIUM/VILANTEROL 62.5/25MCG 7 PUFFS/INHALER INH SCH (09:48)
[2021-04-23] MEDS: HEPARIN SOD 5,000 UNIT/0.5 ML VIAL SQ SCH ×2 (09:48→20:26)
--- NOTE | 2021-04-23 13:45 | Hospitalist Progress Note ---
Date of Service April 23, 2021 Assessment & Plan (1) Dizziness: Plan: - Possibly multi-factorial - related to orthostatic hypotension vs. vertigo vs. hypoglycemia. Patient also admits her diet was poor prior to admission as she was worried about caring for her . Dehydration may be a component as well. - Dizziness is improving. - Was hypoglycemic on admission at 60. BSG has been stable over the past 24hrs. Glucose 92 this AM. Will check AM cortisol. - MRI brain was negative for evidence of masses, hemorrhage or CVA. - Orthostatic vital signs did show ~27 drop in systolic BP - D5 + 0.45% NS at 80 cc/hr started yesterday- will continue IVF and recheck orthostatic BPs - PT/OT evaluation ordered for discharge planning + evaluation of possible BPPV- No vertigo produced with BPPV assessment. - Continue Meclizine PRN (2) Unstable gait: Plan: - Possibly related to issues noted above. - PT/OT evaluation today- No vertigo produced with BPPV assessment. (3) Bradycardia: Plan: - HR has decreased to 50 to 60 range, possibly contributing to dizziness.--> 63 today. - Continue to monitor. (4) Hypoglycemia: Plan: - Please see discussion noted above. - Hgb A1C is pending. - Will check AM cortisol. (5) Hypertension: Plan: - Has been uncontrolled during this admission - possibly related to anxiety with hospitalization.--> Initially 180/67 this AM, and now improved to 145/66. - Losartan was increased to 100 mg; Norvasc was added, 10 mg daily. - Cannot add beta yoel d/t bradycardia. - Continue to monitor. DVT ppx: Heparin 5,000 units BID. Dispo: Tele; continue to monitor glucose; PT/OT Admission and Anticipated Discharge Date Admission Date: April 21, 2021 Supervising Physician Co-Signing Physician Notes Attending Attestation - Personal bedside visit was not performed. However, chart reviewed in detail, and care plan d/w MARTITA Hubbard. I agree w/ the tran components of her documentation. Patient continues with dizziness / vertigo but they are improved. She does have documented orthostasis thus continue IV fluids and adjust BP meds. Check AM cortisol. For "vertigo" component - meclizine prn. Of note - PT performed vestibular eval today and [place]-Hallpike maneuver was negative. Jack Villagomez MD Subjective Patient reports dizziness and vertigo are improving. She continues to have symptoms with ambulation and faster movements, but overall states she is improving. She describes the dizziness as the room spinning. She has no other complaints today. She does require redirection during the conversation as she tends to discuss her and his care rather than her own. He is currently admitted as well. Review of Systems Constitutional: no fever and no chills Eyes: no worsening vision Ear, Nose, Mouth, Throat: + dizziness (vertigo); no ear pain, no nasal congestion and no nasal discharge Respiratory: no dyspnea Cardiovascular: no chest pain Gastrointestinal: no abdominal pain, no nausea and no vomiting Genitourinary: no dysuria and no hematuria Neurologic: + dizziness Physical Exam Constitutional: + acute distress and + thin ENMT: Ears: no hearing impairment Neck: trachea midline, no thyromegaly Respiratory: normal respiratory effort, lungs clear to auscultation Cardiovascular: RRR, no murmur, no edema Gastrointestinal (Abdomen): Inspection/Auscultation: normal bowel sounds Percussion/Palpation: abdomen soft; abdomen nontender Skin: no rashes, warm and dry Psychiatric: A+Ox3, euthymic affect Lymphatic: no cervical or axillary lymphadenopathy Results & Data Results & Data ([facility]) Vital Signs (Past 12 Hours) Vital Signs Temp Pulse Pulse Pulse Resp BP BP 04/23/21 11:48 36.8 C 63 18 04/23/21 10:10 65 145/66 H 04/23/21 07:36 36.5 C 54 L 73 20 180/70 H 180/67 H 04/23/21 02:08 36.5 C 57 L 18 153/74 H Pulse Ox 04/23/21 11:48 100 04/23/21 10:10 04/23/21 07:36 97 04/23/21 02:08 92 PG Care Time/CCT Total # of Minutes Spent Total Time Spent with Patient: Total time spent is greater than 50% in coordination of care (as documented) at patient's floor/unit and/or counseling patient: Coding Level of Care Code 76391 Subseq Hosp Care Lvl 2 Diagnoses Dizziness R42 Unstable gait R26.81 Bradycardia R00.1 Hypoglycemia E16.2 Hypertension I10
[2021-04-24] MEDS: D5W AND 1/2NSS 1,000 ML IV SCH (04:09)
[2021-04-24 07:35] LABS: Estimated Average Glucose 120 mg/dl; Hemoglobin A1C 5.8 % (4.5-5.6)
[2021-04-24] MEDS: UMECLIDINIUM/VILANTEROL 62.5/25MCG 7 PUFFS/INHALER INH SCH (08:04)
[2021-04-24] MEDS: amLODIPine BESYLATE 5 MG TAB PO SCH (08:04)
[2021-04-24] MEDS: LOSARTAN POTASSIUM 50 MG TAB PO SCH (08:04)
[2021-04-24] MEDS ORDERED: CHLORTHALIDONE 25 MG TAB PO SCH (09:00)
[2021-04-24] MEDS: NICOTINE POLACRILEX 2 MG GUM MT PRN (09:44)
[2021-04-24] MEDS: HEPARIN SOD 5,000 UNIT/0.5 ML VIAL SQ SCH (09:47)
[2021-04-24] MEDS ORDERED: DOCUSATE SODIUM 100 MG CAP PO SCH (10:15)
--- NOTE | 2021-04-24 11:59 | Discharge Summary ---
Date of Service April 24, 2021 Admission HPI Per Admitting Provider 75 yo female with no history of vertigo, only HTN, presented to the ED with acute onset of dizziness. Happened acutely this morning when getting up from bed. She had to crawl to the bathroom but could not even lift herself to the toilet. She described it as the room was spinning. She had to call EMS. In the ED her BP was markedly elevated, > 200. CT head was normal. ED gave her some meclizine, tried to control blood pressure and see if she could go home. Then she was slightly forgetful so they requested admission for MRI brain. Patient is very active, takes care of her sick but she is sure to eat well, stay well hydrated, gets exercise. She is puzzled by this episodes. Admits to more stress and anxiety recently with her being sick, in and out of hospital for a few weeks. He is currently hospitalized. Principal Diagnosis Accelerated hypertension, Vertigo Discharge Exam Constitutional WD/WN, vitals as above Eyes PERRL, conjunctivae normal, anicteric sclerae ENMT external ear and nose normal, oropharynx normal Neck trachea midline, no thyromegaly Respiratory normal respiratory effort, lungs clear to auscultation Cardiovascular RRR, no murmur, no edema Chest (Breasts) Chest: normal inspection of chest Gastrointestinal (Abdomen) normal bowel sounds, soft, nontender, no hepatosplenomegaly Musculoskeletal Extremities: extremities normal to inspection; no cyanosis and no clubbing Skin no rashes, warm and dry Neurologic moves all extremities and awake; no focal motor deficits Psychiatric A+Ox3, euthymic affect Lymphatic no lymphedema Discharge Data Allergies Allergy/AdvReac Type Severity Reaction Status Date / Time erythromycin base Allergy Intermediate HIVES, Verified 12/24/19 11:27 SWELLING Consultations 04/21/21 07:33 ED Decision to Admit Stat Ordered Studies 04/21/21 05:59 CT head/brain wo con Stat 04/21/21 07:49 MR brain wo/w con Stat Head CT 04/21/21 05:59 CT head/brain wo con CLINICAL HISTORY: sudden onset of dizziness COMPARISON STUDY: No previous studies for comparison. TECHNIQUE: Axial CT of the brain is performed from the vertex to the skull base. IV contrast was not administered for this examination. A dose lowering technique was utilized adhering to the principles of ALARA. CT DOSE: 614.27 mGy.cm FINDINGS: No intra or extra-axial mass lesions are visualized. There is no CT evidence of acute cortical infarction. There is no evidence of midline shift. There is no acute hemorrhage. No calvarial fractures are visualized. There are minor white matter hypodensities likely on a small vessel basis. There is no evidence of pathologic ventricular dilatation. There is a small right posterior mastoid effusion IMPRESSION: 1. Small right mastoid effusion 2. No acute intracranial findings ACT 112: Negative or not required by law. Electronically signed by: King Young M.D. 04/21/2021 6:45 AM Brain MRI 04/21/21 07:49 MRI OF THE BRAIN COMBO CLINICAL HISTORY: Vertigo. COMPARISON STUDY: CT of the brain dated 04/21/2021. TECHNIQUE: MRI of the brain was performed utilizing various T1 and T2-weighted sequences in the axial, sagittal, and coronal planes. Contrast-enhanced sequences were acquired following the administration of 4.9 cc of Gadavist. FINDINGS: Brain parenchyma: There is age-related involutional change noting mild to moderate patchy subcortical and periventricular microangiopathic disease. There is no hemorrhage or mass effect. There is no restricted diffusion to suggest acute ischemia. No enhancing mass lesion is identified on the postcontrast images. Brown-white matter differentiation is preserved. No extra-axial fluid collection is seen. The cerebellar tonsils are normal in configuration. Ventricles, sulci, and cisterns: Prominent secondary to involutional change. Pituitary and sella: Unremarkable. Intracranial vasculature: Normal flow voids are maintained at the skull base. Orbits: The bony orbits are grossly intact. Orbital contents are normal in appearance. Sinuses and mastoids: The paranasal sinuses are clear. There is a right mastoid effusion. The mastoid air cells are well pneumatized. Calvarium: Unremarkable. Cervical cord: Partially visualized cervical spinal cord is normal in morphology and signal intensity. IMPRESSION: No acute intracranial abnormality. ACT 112: Negative or not required by law. Electronically signed by: Marek Soares M.D. 04/21/2021 10:46 AM Hospital Course (1) Dizziness: - Possibly multi-factorial - secondary to vertigo and elevated BPs. SHe does have some slight orthostasis on vitals here but now asymptomatic making this not likely culprit Dizziness now resolved with one dose meclizine and control of BPs as below DI dhave some mild hypoglycemia but A1C indicated prediabetes so not likely she is dropping too low. This would not cause dizziness - MRI brain was negative for evidence of masses, hemorrhage or CVA. dc to home on prn meclizine did well with PT/OT and was walking halls independently to visit her who is also hospitalized on day of discharge (2) Unstable gait: - Possibly related to issues noted above. - PT/OT evaluation -did well and can go home without services (3) Bradycardia: - HR has remains in sinus in 50 to 60 range, would not cause dizziness (4) Hypoglycemia: - Please see discussion noted above. - Hgb A1C indicates prediabetes at 5.7% (5) Hypertension: - Has been uncontrolled during this admission - possibly related to anxiety with hospitalization. - Losartan was increased to 100 mg; Norvasc was added, 10 mg daily. - Cannot add beta yoel d/t bradycardia. - BP has improved from the 180 to 190 range, now 117/72 on day of discharge DVT ppx: Heparin 5,000 units BID. Dispo: dc to home Total Time Total Time Spent Total Time Spent (In Minutes): 35 min Discharge Plan Discharge Items Patient Disposition: Home - Self-Care Reason For Visit: VERTIGO Discharge Diagnosis: Vertigo Uncontrolled hypertension Condition on Discharge: Good Activity: As commented below Lifting: Gradually increase as tolerated Bathing: No limitations Exercise/Sports: Gradually increase as tolerated Driving/Machine Use: No driving until seen by PCP and cleared Weightbearing: Full weightbearing Non-emergency contact: Primary Care Provider Call non-emergency contact if: you have any medication questions and your symptoms worsen Follow-up/Referrals: Salvador Diamond III, MD [Primary Care Provider] - (Follow up within 1-2 weeks.) Diet: Heart Healthy Addtl Attending Provider Instructions: You were admitted with dizziness that was likely due to vertigo and uncontrolled blood pressure. You had a brain MRI that was negative for stroke or brain tumor. With better control of your blood pressure, your dizziness improved. Please check your blood pressure 1-2 times a day while at rest and keep a log of your measurements for your doctor. You were started on a new medication for blood pressure called amlodipine 10mg once daily. Your losartan dose was increased to 100mg daily. You can take meclizine 12.5mg by mouth every 8 hours as needed for dizziness. It would greatly benefit your health to quit smoking-this will also help lower your blood pressure. Pending Studies at Discharge: No Stand-Alone Forms: My [facility], Smoking Cessation Medications and DC Order Prescriptions: New losartan 100 mg tablet 100 mg PO DAILY Qty: 30 RF: 0 amlodipine 10 mg tablet 10 mg PO DAILY Qty: 30 RF: 0 meclizine 12.5 mg Tablet 12.5 mg PO Q8H PRN (Reason: dizziness) Qty: 7 RF: 0 Continued Anoro Ellipta 62.5-25 mcg/actuation blister with device 1 inh INH DAILY Qty: 3 RF: 1 Discontinued losartan 50 mg tablet 50 mg PO DAILY Qty: 90 RF: 3 Discharge Orders: Discharge Order (Routine); Ordered 04/24/21 Ordered By: Becki Hogue Admission Data Admit Date/Time: 04/24/21 08:33 Attending Provider: Becki Hogue Admit Provider: Getachew Loyns Primary Care Provider: Salvador Diamond III Other Providers: Getachew Lyons Coding Level of Care Code D/C DAY MANAGEMENT >30 MINS Diagnoses Dizziness R42 Unstable gait R26.81 Bradycardia R00.1 Hypoglycemia E16.2 Hypertension I10
== END 2021-04-24 14:06 | disposition home or self-care (01) | DRG 312 ==
LOC: EDSEX → 2W 05:35 → ED 05:35 → SUATTDRO 07:49 → 2W 09:38